=== PATIENT | female | born 1940 | race Asian ===

== ENCOUNTER 2017-03-05 19:59 | Inpatient (IN) | payer MEDICARE, MEDICAID ==
[~2017-03-05] VITALS: Ht 154.9 cm; Wt 72.6 kg
[2017-03-05 20:12] VITALS: BP 146/73
[2017-03-05] MEDS ORDERED: Sodium Chloride 500ML 500 ML IV ONE (20:25)
[2017-03-05 21:01] LABS: HEMATOCRIT 31.7 % (37.0-47.0); HEMOGLOBIN 9.5 G/DL (12.0-16.0); MEAN CORPUSCULAR VOLUME 114 FL (80-99); PLATELET COUNT 92 K/UL (150-450); RED BLOOD COUNT 2.78 M/UL (4.20-5.40); RED CELL DISTRIBUTION WIDTH 19.4 % (11.6-14.8); WHITE BLOOD COUNT 4.9 K/UL (4.8-10.8)
[2017-03-05 21:02] LABS: BASOPHILS % (AUTO) 0.7 % (0.0-2.0); LYMPHOCYTES % (AUTO) 8.4 % (20.0-45.0); MONOCYTES % (AUTO) 5.4 % (1.0-10.0); NEUTROPHILS % (AUTO) 84.5 % (45.0-75.0)
[2017-03-05 21:26] LABS: ALANINE AMINOTRANSFERASE 27 U/L (12-78); ALBUMIN 4.1 G/DL (3.4-5.0); ALBUMIN/GLOBULIN RATIO 0.9 (1.0-2.7); ALKALINE PHOSPHATASE 209 U/L (46-116); ANION GAP 9 mmol/L (5-15); ASPARTATE AMINO TRANSFERASE 37 U/L (15-37); BILIRUBIN,TOTAL 0.3 MG/DL (0.2-1.0); BLOOD UREA NITROGEN 61 mg/dL (7-18); CALCIUM 8.8 MG/DL (8.5-10.1); CARBON DIOXIDE 21 MMOL/L (21-32); CHLORIDE 102 MMOL/L (98-107); CKMB 4.8 NG/ML (0.0-3.6); CREATINE KINASE 176 U/L (26-308); CREATININE 2.6 MG/DL (0.55-1.30); SODIUM 131 MMOL/L (136-145)
[2017-03-05 21:29] LABS: POTASSIUM 7.4 MMOL/L (3.5-5.1)
[2017-03-05] MEDS ORDERED: Calcium Gluconate 1gm/10ml vial IVP ONE (22:00)
[2017-03-05 22:30] VITALS: BP 145/66
[2017-03-05] MEDS ORDERED: Zolpidem 5mg tab ORAL PRN (22:30)
[2017-03-05] MEDS ORDERED: Albuterol/Ipratropium 3ml neb HHN PRN (22:30)
[2017-03-05] MEDS ORDERED: Miralax 17gm pkt ORAL PRN (22:30)
[2017-03-05] MEDS ORDERED: Mylanta II UD 30ml ORAL PRN (22:30)
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
[2017-03-05 23:15] VITALS: BP 158/78
[2017-03-06] VITALS: BP 114/68
[2017-03-06 04:00] VITALS: BP 144/68
[2017-03-06] MEDS: NovoLOG Insulin Flexpen SUBQ SCH ×4 (06:30→21:00)
[2017-03-06 08:00] VITALS: BP 150/68
[2017-03-06 08:04] LABS: HEMATOCRIT 24.2 % (37.0-47.0); HEMOGLOBIN 7.4 G/DL (12.0-16.0); MEAN CORPUSCULAR VOLUME 115 FL (80-99); PLATELET COUNT 78 K/UL (150-450); RED CELL DISTRIBUTION WIDTH 18.8 % (11.6-14.8); WHITE BLOOD COUNT 4.6 K/UL (4.8-10.8)
[2017-03-06 08:05] LABS: INR 0.9 (0.9-1.1)
[2017-03-06 08:58] LABS: LACTATE DEHYDROGENASE 250 U/L (81-234)
[2017-03-06] MEDS ORDERED: Heparin 5000 units/ml inj SUBQ SCH (09:00)
[2017-03-06] MEDS ORDERED: Sodium Polystyrene Sulfonate 15gm Powder ORAL SCH (09:00)
--- NOTE | 2017-03-06 10:00 | Diagnostic Imaging Report ---
Indication: Pain Technique: XRAY Chest 1v Comparison: None Findings: Heart is enlarged. There is no focal airspace consolidation. No pleural effusion or pneumothorax. There is no acute osseous abnormality. Impression: Cardiomegaly. No focal consolidation. This corresponds the preliminary interpretation of the treating ER physician.
[2017-03-06 10:32] LABS: ALANINE AMINOTRANSFERASE 19 U/L (12-78); ALBUMIN 2.9 G/DL (3.4-5.0); ALBUMIN/GLOBULIN RATIO 0.9 (1.0-2.7); ALKALINE PHOSPHATASE 135 U/L (46-116); ANION GAP 13 mmol/L (5-15); ASPARTATE AMINO TRANSFERASE 26 U/L (15-37); BILIRUBIN,TOTAL 0.2 MG/DL (0.2-1.0); BLOOD UREA NITROGEN 57 mg/dL (7-18); CALCIUM 8.3 MG/DL (8.5-10.1); CARBON DIOXIDE 17 MMOL/L (21-32); CHLORIDE 111 MMOL/L (98-107); CHOLESTEROL 108 MG/DL (< 200); CREATININE 2.4 MG/DL (0.55-1.30); HDL CHOLESTEROL 58 MG/DL (40-60); SODIUM 140 MMOL/L (136-145); TRIGLYCERIDES 53 MG/DL (30-150)
[2017-03-06 10:35] LABS: POTASSIUM 6.1 MMOL/L (3.5-5.1)
[2017-03-06 10:41] LABS: % IRON SATURATION 94 % (15-50); IRON 136 ug/dL (50-175); TOTAL IRON BINDING CAPACITY 145 ug/dL (250-450)
[2017-03-06 12:00] VITALS: BP 161/76
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
--- NOTE | 2017-03-06 14:46 | Cardiology Report ---
APPROVED REPORT EKG Measurement Heart [id number] [place] [id number] [id number] Normal sinus rhythm Prolonged QT Abnormal ECG
--- NOTE | 2017-03-06 15:32 | History & Physical ---
History and Physical History & Physicial Syed Lala MD Mar 06, 2017 15:31
--- NOTE | 2017-03-06 15:47 | Cardiology Progress Note ---
Assessment/Plan Assessment/Plan The patient is seen and examined, full consult note is dictated. Objective Last 24 Hour Vital Signs Date Time Temp Pulse Resp B/P (MAP) Pulse Ox O2 Delivery O2 Flow Rate FiO2 03/06/17 12:00 97.2 76 18 161/76 100 Room Air 03/06/17 08:00 71 03/06/17 08:00 97.0 71 18 150/68 100 Room Air 03/06/17 04:00 98.6 73 16 144/68 98 Room Air 03/06/17 04:00 71 03/06/17 00:00 98.2 103 19 114/68 98 03/06/17 00:00 70 03/05/17 23:15 98.6 68 16 158/78 100 Room Air 03/05/17 23:00 63 16 145/66 100 Room Air 03/05/17 22:30 63 16 145/66 100 Room Air 03/05/17 20:12 16 146/73 98 Room Air 03/05/17 19:52 64 16 146/73 98 Room Air Intake and Output 03/05/17 03/06/17 19:00 07:00 Intake Total 240 ml Balance 240 ml Intake Oral 240 ml # Voids 2 Laboratory Tests Test 03/05/17 20:45 03/06/17 06:45 03/06/17 14:55 White Blood Count 4.9 K/UL (4.8-10.8) 4.6 K/UL (4.8-10.8) L Red Blood Count 2.78 M/UL (4.20-5.40) L 2.10 M/UL (4.20-5.40) L Hemoglobin 9.5 G/DL (12.0-16.0) L 7.4 G/DL (12.0-16.0) L Hematocrit 31.7 % (37.0-47.0) L 24.2 % (37.0-47.0) L Mean Corpuscular Volume 114 FL (80-99) H 115 FL (80-99) H Mean Corpuscular Hemoglobin 34.2 PG (27.0-31.0) H 35.0 PG (27.0-31.0) H Mean Corpuscular Hemoglobin Concent 30.0 G/DL (32.0-36.0) L 30.4 G/DL (32.0-36.0) L Red Cell Distribution Width 19.4 % (11.6-14.8) H 18.8 % (11.6-14.8) H Platelet Count 92 K/UL (150-450) L 78 K/UL (150-450) L Mean Platelet Volume 6.1 FL (6.5-10.1) L 7.5 FL (6.5-10.1) Neutrophils (%) (Auto) 84.5 % (45.0-75.0) H % (45.0-75.0) Lymphocytes (%) (Auto) 8.4 % (20.0-45.0) L % (20.0-45.0) Monocytes (%) (Auto) 5.4 % (1.0-10.0) % (1.0-10.0) Eosinophils (%) (Auto) 1.0 % (0.0-3.0) % (0.0-3.0) Basophils (%) (Auto) 0.7 % (0.0-2.0) % (0.0-2.0) Sodium Level 131 MMOL/L (136-145) L 140 MMOL/L (136-145) Potassium Level 7.4 MMOL/L (3.5-5.1) *H 6.1 MMOL/L (3.5-5.1) *H Chloride Level 102 MMOL/L (98-107) 111 MMOL/L (98-107) H Carbon Dioxide Level 21 MMOL/L (21-32) 17 MMOL/L (21-32) L Anion Gap 9 mmol/L (5-15) 13 mmol/L (5-15) Blood Urea Nitrogen 61 mg/dL (7-18) H 57 mg/dL (7-18) H Creatinine 2.6 MG/DL (0.55-1.30) H 2.4 MG/DL (0.55-1.30) H Estimat Glomerular Filtration Rate mL/min (>60) mL/min (>60) Glucose Level 94 MG/DL (74-106) 87 MG/DL (74-106) Calcium Level 8.8 MG/DL (8.5-10.1) 8.3 MG/DL (8.5-10.1) L Total Bilirubin 0.3 MG/DL (0.2-1.0) 0.2 MG/DL (0.2-1.0) Aspartate Amino Transf (AST/SGOT) 37 U/L (15-37) 26 U/L (15-37) Alanine Aminotransferase (ALT/SGPT) 27 U/L (12-78) 19 U/L (12-78) Alkaline Phosphatase 209 U/L (46-116) H 135 U/L (46-116) H Total Creatine Kinase 176 U/L (26-308) Creatine Kinase MB 4.8 NG/ML (0.0-3.6) H Creatine Kinase MB Relative Index 2.7 Troponin I 0.009 ng/mL (0.000-0.056) Pro-B-Type Natriuretic Peptide 4792 pg/mL (0-125) H Total Protein 8.8 G/DL (6.4-8.2) H 6.1 G/DL (6.4-8.2) #L Albumin 4.1 G/DL (3.4-5.0) 2.9 G/DL (3.4-5.0) L Globulin 4.7 g/dL 3.2 g/dL Albumin/Globulin Ratio 0.9 (1.0-2.7) L 0.9 (1.0-2.7) L Differential Total Cells Counted 100 Neutrophils % (Manual) 81 % (45-75) H Lymphocytes % (Manual) 17 % (20-45) L Monocytes % (Manual) 2 % (1-10) Eosinophils % (Manual) 0 % (0-3) Basophils % (Manual) 0 % (0-2) Band Neutrophils 0 % (0-8) Platelet Estimate Decreased L Platelet Morphology Normal Hypochromasia 1+ Anisocytosis 1+ Macrocytosis 1+ Erythrocyte Sedimentation Rate 56 MM/HR (0-30) H Reticulocyte Count 1.3 % (0.0-2.0) Prothrombin Time 9.7 SEC (9.30-11.50) Prothromb Time International Ratio 0.9 (0.9-1.1) Activated Partial Thromboplast Time 27 SEC (23-33) Hemoglobin A1c 6.0 % (4.3-6.0) Iron Level 136 ug/dL (50-175) Total Iron Binding Capacity 145 ug/dL (250-450) L Percent Iron Saturation 94 % (15-50) H Unsaturated Iron Binding 9 ug/dL (112-346) L Lactate Dehydrogenase 250 U/L (81-234) H Triglycerides Level 53 MG/DL (30-150) Cholesterol Level 108 MG/DL (< 200) LDL Cholesterol 49 mg/dL (<100) HDL Cholesterol 58 MG/DL (40-60) Cholesterol/HDL Ratio 1.9 (3.3-4.4) L Vitamin B12 Level 326 PG/ML (193-986) Folate 4.5 NG/ML (8.6-58.9) L Thyroid Stimulating Hormone (TSH) 1.987 uiU/mL (0.358-3.740) Uric Acid 4.4 MG/DL (2.6-7.2) Ferritin Pending C-Reactive Protein, Quantitative Pending YOMAIRA TRAYLOR Mar 06, 2017 15:47
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
[2017-03-06 16:00] VITALS: BP 171/73
[2017-03-06 16:06] LABS: FERRITIN > 2000 NG/ML (8-388)
[2017-03-06] MEDS ORDERED: Acetaminophen 500mg (ES) tab ORAL PRN (16:30)
[2017-03-06 16:32] LABS: MEAN CORPUSCULAR VOLUME 115 FL (80-99); PLATELET COUNT 81 K/UL (150-450); RED BLOOD COUNT 2.35 M/UL (4.20-5.40); RED CELL DISTRIBUTION WIDTH 19.2 % (11.6-14.8); WHITE BLOOD COUNT 4.7 K/UL (4.8-10.8)
[2017-03-06 16:33] LABS: BASOPHILS % (AUTO) 0.7 % (0.0-2.0); EOSINOPHILS % (AUTO) 2.5 % (0.0-3.0); LYMPHOCYTES % (AUTO) 18.6 % (20.0-45.0); MONOCYTES % (AUTO) 11.2 % (1.0-10.0)
[2017-03-06] MEDS: Vitamin B12 1000mcg/ml Inj SUBQ SCH (16:55)
[2017-03-06] MEDS ORDERED: Vitamin D 50,000 units cap ORAL SCH (17:00)
[2017-03-06 17:11] LABS: ALANINE AMINOTRANSFERASE 19 U/L (12-78); ALBUMIN 3.1 G/DL (3.4-5.0); ALBUMIN/GLOBULIN RATIO 0.9 (1.0-2.7); ALKALINE PHOSPHATASE 149 U/L (46-116); ANION GAP 11 mmol/L (5-15); ASPARTATE AMINO TRANSFERASE 25 U/L (15-37); BILIRUBIN,TOTAL 0.2 MG/DL (0.2-1.0); BLOOD UREA NITROGEN 54 mg/dL (7-18); CALCIUM 8.6 MG/DL (8.5-10.1); CARBON DIOXIDE 19 MMOL/L (21-32); CHLORIDE 112 MMOL/L (98-107); CREATININE 2.3 MG/DL (0.55-1.30); POTASSIUM 5.8 MMOL/L (3.5-5.1); SODIUM 142 MMOL/L (136-145)
[2017-03-06] MEDS: Docusate 100mg cap ORAL SCH ×2 (18:00→18:29)
[2017-03-06] MEDS ORDERED: RENVELA0.8 GM ORAL (18:43)
[2017-03-06] MEDS ORDERED: NOVOLOG100 UNIT/4 SQ (18:56)
[2017-03-06] MEDS ORDERED: VASCEPA1 GM PO (18:56)
[2017-03-06] MEDS ORDERED: ATORVASTATIN CA10 MG ORAL (18:56)
[2017-03-06] MEDS ORDERED: ALLOPURINOL100 M1 ORAL (18:56)
[2017-03-06] MEDS ORDERED: DIOVAN160 MG ORAL (18:56)
[2017-03-06] MEDS ORDERED: CELEBREX200 MG ORAL (18:56)
[2017-03-06] MEDS ORDERED: NATEGLINIDE120 MG PO (18:56)
[2017-03-06] MEDS ORDERED: FERROUS SULFAT325 M2 ORAL (18:56)
[2017-03-06] MEDS ORDERED: CILOSTAZOL100 MG PO (18:56)
[2017-03-06] MEDS ORDERED: ALENDRONAT70 MG/75 M PO (18:56)
[2017-03-06] MEDS ORDERED: AMLODIPINE BESYL5 MG ORAL (18:56)
[2017-03-06] MEDS ORDERED: CALTRATE 600 +1 EAC3 PO (18:56)
[2017-03-06] MEDS ORDERED: GABAPENTIN300 MG ORAL (18:56)
[2017-03-06] MEDS ORDERED: LANTUS SOL100 UNIT/1 SUBQ (18:56)
[2017-03-06] MEDS ORDERED: PROCRIT10000 UNIT SUBQ ×2 (18:56)
[2017-03-06] MEDS ORDERED: ISOSORBIDE MONO30 M1 PO (18:56)
[2017-03-06] MEDS ORDERED: ZENPEP DR 25,01 EACH PO (18:56)
[2017-03-06] MEDS ORDERED: ASPIR 8181 MG ORAL (18:56)
[2017-03-06] MEDS ORDERED: COLCRYS0.6 M1 PO (18:56)
[2017-03-06] MEDS ORDERED: BYSTOLIC10 MG ORAL (18:56)
[2017-03-06] MEDS ORDERED: TRADJENTA5 MG PO (18:56)
[2017-03-06] MEDS ORDERED: RESTASIS1 EACH BOTH EYES (18:58)
[2017-03-06 20:00] VITALS: BP 159/93
[2017-03-06] MEDS ORDERED: Nitroglycerin Subl 0.4mg tab SL PRN (20:30)
[2017-03-06] MEDS: Morphine Sulfate 2mg/ml Inj IVP PRN (21:27)
--- NOTE | 2017-03-06 22:00 | Consultation ---
DATE OF CONSULTATION: 03/06/2017 CARDIOLOGY CONSULTATION CONSULTING PHYSICIAN: Yoni Yost M.D. REFERRING PHYSICIAN: Syed Lala M.D. REASON FOR CONSULTATION: Management of chest pain. HISTORY OF PRESENT ILLNESS: The patient is a very unfortunate 76-year-old Ma[place] female, who presents to emergency department for evaluation of chest pain. She had associated dizziness and blurred vision while she was driving on the highway and she pulled over and reported that to her family members. A 911 was called and the patient was brought to [facility] Emergency Department. At the time of arrival, her Accu-Chek was 30. She was given glucose and her symptoms resolved. She had a blood pressure of 146/72 mmHg at the time of arrival to the hospital and heart rate was 64. A 12-lead electrocardiogram did not show any ST and T-wave abnormality although it was significant for QT prolongation. She was admitted to telemetry for further evaluation and management of chest pain. Cardiology consultation was made at the request of Dr. Lala to address the above. PAST MEDICAL HISTORY: History of diabetes mellitus and hypertension. PAST SURGICAL HISTORY: None. MEDICATIONS: Currently, the medication list is not available. However, she is taking lansoprazole 20 mg p.o. daily, folic acid 5 mg p.o. daily, ergocalciferol 50,000 units weekly, insulin aspart per protocol, acetaminophen 650 mg q.4 h. p.r.n. fever and temperature, morphine sulfate 1 mg q.4 h. p.r.n. pain, MiraLAX 17 g p.r.n. constipation daily, Zofran 6 mg IV push p.r.n. nausea and vomiting, zolpidem 5 mg nightly p.r.n. insomnia, inhaler of albuterol and Atrovent 3 mL q.6 hours p.r.n. dyspnea, and clonidine 0.1 mg q.4 h. p.r.n. for high blood pressure in this hospitalization. ALLERGIES: No known drug allergies. FAMILY HISTORY: No premature coronary artery disease in the first-degree relatives. SOCIAL HISTORY: Denies any tobacco, alcohol, or illicit drug use. REVIEW OF SYSTEMS: HEENT: At the time of this event, she had headache, blurred vision, and dizziness. CONSTITUTIONAL: Denies any fever, chills, night sweats, or generalized weakness at the time of this event. CARDIOVASCULAR: Some chest pain and pressure, but no shortness of breath. Denies any PND, orthopnea, or leg swelling. PULMONARY: Denies any cough, hemoptysis, or wheezing. GASTROINTESTINAL: Denies any nausea, vomiting, diarrhea, constipation, abdominal pain, or GI bleed. GENITOURINARY: Denies any hematuria, dysuria, or incontinence. NEUROLOGY: Denies any motor dysfunction, sensory deficit, or altered speech. PHYSICAL EXAMINATION: VITAL SIGNS: Blood pressure at the time of arrival to the hospital was 146/72, respirations 16, pulse of 64, and O2 saturation 98% on room air. GENERAL: The patient is a very unfortunate 76-year-old female, in no apparent respiratory distress. Alert and oriented x4. HEENT: Atraumatic and normocephalic. Anicteric. Pupils are equal, round, and reactive to light and accommodation. Extraocular muscles intact. NECK: JVP less than 5 cm. No carotid bruit. Carotid upstrokes 2+ bilaterally. CARDIOVASCULAR: Normal S1 and S2. Regular rate and rhythm. No murmurs, gallops, or rubs. PMI is at fourth intercostal space at the midclavicular line. LUNGS: Clear to auscultation bilaterally. ABDOMEN: Soft, nontender, and nondistended. No hepatosplenomegaly. Positive bowel sounds. EXTREMITIES: No evidence of edema, clubbing, or cyanosis. LABORATORY FINDINGS: Chemistry, sodium is 131, potassium is 7.4, chloride 102, bicarbonate 21, BUN of 61, creatinine 2.6, glucose is 94, and calcium is 8.8. Troponin I x1 negative. ProBNP was 4792. INR was 0.9. WBC was 4.9, hemoglobin 9.5, hematocrit 31.7, and platelet count is 92,000. A 12-lead electrocardiogram, sinus rhythm at the rate of 63 with normal axis, QT prolongation. No ST and T-wave abnormalities. Chest x-ray showed cardiomegaly with no focal consolidation. ASSESSMENT AND PLAN: The patient is a very unfortunate 76-year-old lady seen in Cardiology consultation at the request of Dr. Lala. 1. Chest discomfort most likely secondary to hypoglycemic event. She had typical symptoms of dizziness, lightheadedness, and blurred vision due to hypoglycemia. On arrival to the emergency department, a 12-lead electrocardiogram did not show any acute ischemic changes. We would like to obtain 2D echocardiography for assessment of wall motion. At this point, I would wait for the result of 2D echocardiography. No other Cardiology cardiac intervention is necessary. We will await this result of the second troponin I level to ultimately rule out acute myocardial infarction. In the meantime, the patient will be continued on aspirin and statin as she is diabetic. 2. Diabetes mellitus with hypoglycemic event. 3. Hypertension. The patient will benefit from ARMANI inhibitors, which will be started and calcium channel adi until the acute renal failure is resolved. I would like to thank, Dr. Lala, for allowing me to participate in the care of this patient. Yoni Yost M.D. DR: GABRIEL JOB#: [id number] CC:
[2017-03-06] MEDS ORDERED: Sodium Polystyrene Sulfonate 15gm Powder ORAL ONE (23:00)
[2017-03-07] VITALS (9 sets, daily range): BP systolic 150–165; BP diastolic 69–80
--- NOTE | 2017-03-07 00:45 | History and Physical Report ---
DATE OF ADMISSION: 03/05/2017 CHIEF COMPLAINT: Chest pain. HISTORY OF PRESENT ILLNESS: This is a 76-year-old Amharic female with past medical history significant for diabetes type 2, hypertension, and chronic kidney disease, who presented to the emergency room complained about chest pain while she was driving at highway. Family member called 911 and upon arrival to the emergency, the patient was asymptomatic however was noted to have elevated potassium as well as worsening renal function and subsequently the patient was admitted to the hospital for acute chest pain possible acute coronary syndrome as well as hyperkalemia and acute kidney injury on chronic renal insufficiency. The patient was noted to have blood glucose of 30 by EMS and received some glucose on the way. She denies any fever or chills. Denies any shortness of breath. Denies any aggravating factors. She denies any loss of consciousness. Denies any double vision. PAST MEDICAL HISTORY AND PAST SURGICAL HISTORY: As above. History of diabetes type 2, hypertension, and chronic kidney disease. History is very limited secondary to patient's status. History is mostly taken from the ER chart, as she is a poor historian. MEDICATIONS AT HOME: Unknown at this time. ALLERGIES: No known drug allergies. SOCIAL HISTORY: Denies any smoking, alcohol, or drugs. FAMILY HISTORY: Noncontributory. REVIEW OF SYSTEMS: Mostly as above. Denies any dysuria, frequency, or hematuria. Denies any hemoptysis or hematochezia. Complained about lower extremity edema. Denies any loss of consciousness. PHYSICAL EXAMINATION: VITAL SIGNS: Today, temperature 98.6, pulse of 103, respirations 16, and blood pressure 158/78, repeat one was 114/68. GENERAL: The patient is awake and responsive, in no acute distress. HEAD AND NECK: Pupils reactive to light. Extraocular movements intact. NECK: Supple. No JVD. LUNGS: Clear. No wheezing or rales. HEART: S1 and S2. Distant heart sounds. Normal gallops. ABDOMEN: Soft, nondistended, and nontender. Positive bowel sounds. EXTREMITIES: No cyanosis or clubbing. A +1 edema on the left lower extremity and ecchymosis was noted in the left lower extremity. NEUROLOGIC: Cranial nerves II through XII are grossly intact. Motor is 5/5 in all extremities. Gait is intact. PSYCHIATRIC: Mood and affect is unable to obtain secondary to patient's lack of language barrier as well as poor historian. LABORATORY AND DIAGNOSTIC DATA: On admission, WBC of 4.9, hemoglobin 9.5, hematocrit 31, and platelet is 92. The patient's sodium 131, potassium 7.4, chloride 102, bicarbonate 21, BUN 51, and creatinine 2.6. Alkaline phosphatase 209, AST of 37, and ALT of 27. First troponin 0.09. ProBNP of 4792. PT of 9.7, INR 0.9, and PTT of 27. The patient's chest x-ray was noted to be cardiomegaly with no focal consolidation. EKG showed normal sinus rhythm, ventricular rate of 63. No tall T-wave was identified. However, the patient has mild prolonged QT. No ST elevation was identified. ASSESSMENT: 1. Chest pain possible acute coronary syndrome. 2. Diabetes type 2, poorly controlled with episode of hypoglycemia. 3. Severe hyperkalemia. 4. Hypertension. 5. Acute kidney injury on chronic kidney disease. 6. Pancytopenia. PLAN: Admit the patient to telemetry. We will follow up with Dr. Brewer, Pulmonary Critical Care, Dr. Yost from Cardiology as well as Dr. Rodrigez from Nephrology. We will monitor laboratory including potassium closely and follow up with history of cardiac enzymes. We will consider transfusion if need to and echocardiogram. Avoid medications if increase worsening of renal function. Code status is Full Code. DVT prophylaxis. Heparin subcutaneous. We will follow up with Accu-Chek with sliding scale. Syed Lala M.D. DR: DAVE JOB#: [id number] CC:
[2017-03-07] MEDS: Morphine Sulfate 2mg/ml Inj IVP PRN ×2 (01:33→10:17)
[2017-03-07] MEDS: NovoLOG Insulin Flexpen SUBQ SCH ×4 (06:30→21:00)
--- NOTE | 2017-03-07 07:20 | Pulmonology Progress Note ---
Assessment/Plan Assessment/Plan ASSESSMENT Chest pain,liekly atypical ( due to fall) Acute renal failure , poss on underlying CRI ( due to DM and HTN) acute hyperkalemia hypoglycemia associated with DM HTN anemia PLAN OF CARE Tele troponin x 2 negative ECG no acute ischemic changes CP likely atypical occurred after fall, no further episodes ECHO cardio eval-per PMD discretion transfuse 1 u RBC today hold ASA and Heparin due to anemia check stool OB anemia w/up with sufficient iron Nitro prn lipid panel stable pro BNP 479 O2 titrate prn, HHN prn Nephro follows s/p Kayexalate, K down to normal creat down to 2.0 renal US renal studies Venous Duplex BLE DVT GI prophylaxis BS management with SS of insulin prn BP management with CCB and Clonidine prn R shoulder X ray case discussed and evaluated by supervising physician Subjective Allergies: Coded Allergies: No Known Allergies (Unverified , 03/05/17) Subjective HH down to 7,6/25.6 SR on tele c/o R shoulder pain after faill at home chest pain occurred after fall as well , currntly denies chest pain or SOB Objective Last 24 Hour Vital Signs Date Time Temp Pulse Resp B/P (MAP) Pulse Ox O2 Delivery O2 Flow Rate FiO2 03/07/17 04:20 98.5 75 20 151/71 94 Room Air 03/07/17 04:00 77 03/07/17 00:24 98.1 78 20 164/80 95 03/07/17 00:00 77 03/06/17 20:00 98.3 75 24 159/93 93 Room Air 03/06/17 20:00 76 03/06/17 16:53 76 161/76 03/06/17 16:00 97.9 71 18 171/73 99 Room Air 03/06/17 16:00 77 03/06/17 12:00 97.2 76 18 161/76 100 Room Air 03/06/17 12:00 78 03/06/17 08:00 71 03/06/17 08:00 97.0 71 18 150/68 100 Room Air Intake and Output 03/06/17 03/07/17 19:00 07:00 Intake Total 236 ml Output Total 91 ml Balance 145 ml Intake Oral 236 ml Output Post Void Residual 91 ml Bladder Scan Volume Amount 76-100 ml # Voids 1 2 General Appearance: no acute distress HEENT: normocephalic, atraumatic, anicteric, mucous membranes moist Respiratory/Chest: lungs clear, no respiratory distress, no accessory muscle use Cardiovascular: normal peripheral pulses, normal rate, regular rhythm - SR on tele Abdomen: soft, non tender, non distended Extremities: no edema, pedal pulses normal Neurologic/Psychiatric: abnormal gait, oriented x 3, responsive Musculoskeletal: atrophy - BLE Laboratory Tests 03/06/17 14:55: White Blood Count 4.7L, Red Blood Count 2.35L, Hemoglobin 8.0L, Hematocrit 27.0L , Mean Corpuscular Volume 115H, Mean Corpuscular Hemoglobin 33.9H, Mean Corpuscular Hemoglobin Concent 29.6L, Red Cell Distribution Width 19.2H, Platelet Count 81L, Mean Platelet Volume 7.3, Neutrophils (%) (Auto) 67.0, Lymphocytes (%) (Auto) 18.6L, Monocytes (%) (Auto) 11.2H, Eosinophils (%) (Auto ) 2.5, Basophils (%) (Auto) 0.7, Sodium Level 142, Potassium Level 5.8H, Chloride Level 112H, Carbon Dioxide Level 19L, Anion Gap 11, Blood Urea Nitrogen 54H, Creatinine 2.3H, Estimat Glomerular Filtration Rate , Glucose Level 77, Uric Acid 4.4, Calcium Level 8.6, Magnesium Level 2.4, Ferritin > 2000H, Total Bilirubin 0.2, Aspartate Amino Transf (AST/SGOT) 25, Alanine Aminotransferase (ALT/SGPT) 19, Alkaline Phosphatase 149H, C-Reactive Protein, Quantitative 0.6, Pro-B-Type Natriuretic Peptide 5573H, Total Protein 6.5, Albumin 3.1L, Globulin 3.4, Albumin/Globulin Ratio 0.9L Current Medications Medications (Trade) Dose Ordered Sig/Hellen Route PRN Reason Start Time Stop Time Status Last Admin Dose Admin Acetaminophen (Tylenol) 650 mg Q4H PRN ORAL fever 03/05/17 22:30 04/04/17 22:29 Albuterol/ Ipratropium (Albuterol/ Ipratropium) 3 ml Q6HRT PRN HHN dyspnea 03/05/17 22:30 03/10/17 22:29 Amlodipine Besylate (Norvasc) 2.5 mg DAILY ORAL 03/06/17 16:00 04/05/17 15:59 03/06/17 16:53 Clonidine HCl (Catapres Tab) 0.1 mg Q4H PRN ORAL For High Blood Pressure 03/05/17 22:30 04/04/17 22:29 Cyanocobalamin (Vitamin B12) 1,000 mcg DAILY@1700 SUBQ 03/06/17 17:00 03/08/17 17:01 03/06/17 16:55 Dextrose (Dextrose 50%) STAT PRN IV Hypoglycemia 03/05/17 22:30 04/04/17 22:29 03/06/17 05:52 Docusate Sodium (Colace) 100 mg THREE TIMES A DAY ORAL 03/06/17 18:00 04/05/17 17:59 Ergocalciferol (Drisdol) 50,000 intlu QWEEK@1700 ORAL 03/06/17 17:00 04/05/17 16:59 03/06/17 16:54 Folic Acid (Folate) 5 mg DAILY ORAL 03/06/17 15:45 04/05/17 15:44 03/06/17 16:54 Insulin Aspart (NovoLOG) BEFORE MEALS AND HS SUBQ 03/06/17 06:30 04/05/17 06:29 03/06/17 12:11 Morphine Sulfate (Morphine Sulfate) 1 mg EVERY 4 HOURS PRN IVP For Pain 03/05/17 22:30 03/12/17 22:29 03/07/17 01:33 Nitroglycerin (Ntg) 0.4 mg Q5M PRN SL Prn Chest Pain 03/06/17 20:30 04/05/17 20:29 Ondansetron HCl (Zofran) 4 mg Q6H PRN IVP Nausea & Vomiting 03/05/17 22:30 04/04/17 22:29 Pantoprazole (Protonix) 40 mg DAILY ORAL 03/06/17 16:00 04/05/17 15:59 03/06/17 16:54 Polyethylene Glycol (Miralax) 17 gm HSPRN PRN ORAL Constipation 03/05/17 22:30 04/04/17 22:29 Zolpidem Tartrate (Ambien) 5 mg HSPRN PRN ORAL Insomnia 03/05/17 22:30 03/12/17 22:29 03/06/17 23:11 Subhash ([facility]),Dee Dee MADERA Mar 07, 2017 07:20
[2017-03-07 08:04] LABS: HEMATOCRIT 25.6 % (37.0-47.0); HEMOGLOBIN 7.6 G/DL (12.0-16.0); MEAN CORPUSCULAR VOLUME 116 FL (80-99); PLATELET COUNT 73 K/UL (150-450); WHITE BLOOD COUNT 4.1 K/UL (4.8-10.8)
[2017-03-07 08:39] LABS: ALANINE AMINOTRANSFERASE 18 U/L (12-78); ALBUMIN/GLOBULIN RATIO 1.1 (1.0-2.7); ALKALINE PHOSPHATASE 138 U/L (46-116); ANION GAP 11 mmol/L (5-15); ASPARTATE AMINO TRANSFERASE 24 U/L (15-37); BILIRUBIN,TOTAL 0.4 MG/DL (0.2-1.0); BLOOD UREA NITROGEN 47 mg/dL (7-18); CALCIUM 8.2 MG/DL (8.5-10.1); CARBON DIOXIDE 21 MMOL/L (21-32); CHLORIDE 112 MMOL/L (98-107); PHOSPHORUS 4.7 MG/DL (2.5-4.9); POTASSIUM 4.5 MMOL/L (3.5-5.1); SODIUM 144 MMOL/L (136-145)
[2017-03-07] MEDS ORDERED: Enoxaparin 40mg Inj SUBQ SCH (09:00)
[2017-03-07] MEDS: Docusate 100mg cap ORAL SCH ×3 (10:16→16:55)
[2017-03-07 10:21] LABS: % IRON SATURATION 98 % (15-50); IRON 127 ug/dL (50-175); TOTAL IRON BINDING CAPACITY 130 ug/dL (250-450)
--- NOTE | 2017-03-07 10:25 | Nephrology Progress Note ---
Assessment/Plan Problem List: (1) Hyperkalemia, diminished renal excretion (2) Renal insufficiency (3) ATN (acute tubular necrosis) Assessment Acute renal failure- Cr lowering ? Underlying CKD DM ? Nephropathy HTN , ? Hypertensive kidney disease Anemia Plan Adjust BP meds Avoid Nephrotoxics Kayexelate given and stoped Norvasc Urine analysis and studies P Folate Vit D B12 Monitor renal parameters Per orders Subjective ROS Limited/Unobtainable: No Constitutional: Reports: malaise Objective Objective Last 24 Hour Vital Signs Date Time Temp Pulse Resp B/P (MAP) Pulse Ox O2 Delivery O2 Flow Rate FiO2 03/07/17 10:16 77 150/76 03/07/17 08:05 71 18 Room Air 21 03/07/17 04:20 98.5 75 20 151/71 94 Room Air 03/07/17 04:00 77 03/07/17 00:24 98.1 78 20 164/80 95 03/07/17 00:00 77 03/06/17 20:00 98.3 75 24 159/93 93 Room Air 03/06/17 20:00 76 03/06/17 16:53 76 161/76 03/06/17 16:00 97.9 71 18 171/73 99 Room Air 03/06/17 16:00 77 03/06/17 12:00 97.2 76 18 161/76 100 Room Air 03/06/17 12:00 78 Intake and Output 03/06/17 03/07/17 19:00 07:00 Intake Total 236 ml Output Total 91 ml Balance 145 ml Intake Oral 236 ml Output Post Void Residual 91 ml Bladder Scan Volume Amount 76-100 ml # Voids 1 2 Laboratory Tests 03/06/17 14:55: White Blood Count 4.7L, Red Blood Count 2.35L, Hemoglobin 8.0L, Hematocrit 27.0L , Mean Corpuscular Volume 115H, Mean Corpuscular Hemoglobin 33.9H, Mean Corpuscular Hemoglobin Concent 29.6L, Red Cell Distribution Width 19.2H, Platelet Count 81L, Mean Platelet Volume 7.3, Neutrophils (%) (Auto) 67.0, Lymphocytes (%) (Auto) 18.6L, Monocytes (%) (Auto) 11.2H, Eosinophils (%) (Auto ) 2.5, Basophils (%) (Auto) 0.7, Sodium Level 142, Potassium Level 5.8H, Chloride Level 112H, Carbon Dioxide Level 19L, Anion Gap 11, Blood Urea Nitrogen 54H, Creatinine 2.3H, Estimat Glomerular Filtration Rate , Glucose Level 77, Uric Acid 4.4, Calcium Level 8.6, Magnesium Level 2.4, Ferritin > 2000H, Total Bilirubin 0.2, Aspartate Amino Transf (AST/SGOT) 25, Alanine Aminotransferase (ALT/SGPT) 19, Alkaline Phosphatase 149H, C-Reactive Protein, Quantitative 0.6, Pro-B-Type Natriuretic Peptide 5573H, Total Protein 6.5, Albumin 3.1L, Globulin 3.4, Albumin/Globulin Ratio 0.9L 03/07/17 06:10: White Blood Count 4.1L, Red Blood Count 2.20L, Hemoglobin 7.6L, Hematocrit 25.6L , Mean Corpuscular Volume 116H, Mean Corpuscular Hemoglobin 34.5H, Mean Corpuscular Hemoglobin Concent 29.7L, Red Cell Distribution Width 19.0H, Platelet Count 73L, Mean Platelet Volume 6.7, Neutrophils (%) (Auto) , Lymphocytes (%) (Auto) , Monocytes (%) (Auto) , Eosinophils (%) (Auto) , Basophils (%) (Auto) , Sodium Level 144, Potassium Level 4.5, Chloride Level 112H, Carbon Dioxide Level 21, Anion Gap 11, Blood Urea Nitrogen 47H, Creatinine 2.0H, Estimat Glomerular Filtration Rate , Glucose Level 98, Calcium Level 8.2L, Magnesium Level 2.3, Total Bilirubin 0.4, Aspartate Amino Transf ( AST/SGOT) 24, Alanine Aminotransferase (ALT/SGPT) 18, Alkaline Phosphatase 138H , Total Protein 5.8L, Albumin 3.0L, Globulin 2.8, Albumin/Globulin Ratio 1.1, Prothrombin Time 10.0, Prothromb Time International Ratio 1.0, Activated Partial Thromboplast Time 26, Phosphorus Level 4.7, Troponin I 0.022 03/07/17 09:00: Ferritin [Pending], Iron Level [Pending], Unsaturated Iron Binding [Pending] Height (Feet): 5 Height (Inches): 1.00 Weight (Pounds): 160 General Appearance: no apparent distress Cardiovascular: normal rate Respiratory/Chest: lungs clear Abdomen: soft FOULADIAN,RACHEL Mar 07, 2017 10:25
[2017-03-07 10:56] LABS: APPEARANCE,URINE SLIGHTLY CLOUDY; BILIRUBIN, URINE NEGATIVE (NEGATIVE); COLOR,URINE PALE YELLOW; GLUCOSE, URINE (UA) NEGATIVE (NEGATIVE); KETONES,URINE NEGATIVE (NEGATIVE); LEUKOCYTE ESTERASE ,URINE NEGATIVE (NEGATIVE); NITRITE,URINE NEGATIVE (NEGATIVE); PH,URINE 6 (4.5-8.0); PROTEIN,URINE 3+ (NEGATIVE); UROBILINOGEN,URINE NORMAL MG/DL (0.0-1.0)
[2017-03-07 10:58] LABS: FERRITIN > 2000 NG/ML (8-388)
--- NOTE | 2017-03-07 11:38 | Internal Med Progress Note ---
Subjective Date of Service: Mar 07, 2017 Physician Name Chidi Sapp Attending Physician Syed Lala MD Current Medications Medications (Trade) Dose Ordered Sig/Hellen Route PRN Reason Start Time Stop Time Status Last Admin Dose Admin Acetaminophen (Tylenol) 650 mg Q4H PRN ORAL fever 03/05/17 22:30 04/04/17 22:29 Albuterol/ Ipratropium (Albuterol/ Ipratropium) 3 ml Q6HRT PRN HHN dyspnea 03/05/17 22:30 03/10/17 22:29 Amlodipine Besylate (Norvasc) 5 mg DAILY ORAL 03/08/17 09:00 04/07/17 08:59 Clonidine HCl (Catapres Tab) 0.1 mg Q4H PRN ORAL For High Blood Pressure 03/05/17 22:30 04/04/17 22:29 Cyanocobalamin (Vitamin B12) 1,000 mcg DAILY@1700 SUBQ 03/06/17 17:00 03/08/17 17:01 03/06/17 16:55 Dextrose (Dextrose 50%) STAT PRN IV Hypoglycemia 03/05/17 22:30 04/04/17 22:29 03/06/17 05:52 Docusate Sodium (Colace) 100 mg THREE TIMES A DAY ORAL 03/06/17 18:00 04/05/17 17:59 03/07/17 10:16 Ergocalciferol (Drisdol) 50,000 intlu QWEEK@1700 ORAL 03/06/17 17:00 04/05/17 16:59 03/06/17 16:54 Folic Acid (Folate) 5 mg DAILY ORAL 03/06/17 15:45 04/05/17 15:44 03/07/17 10:15 Insulin Aspart (NovoLOG) BEFORE MEALS AND HS SUBQ 03/06/17 06:30 04/05/17 06:29 03/06/17 12:11 Morphine Sulfate (Morphine Sulfate) 1 mg EVERY 4 HOURS PRN IVP For Pain 03/05/17 22:30 03/12/17 22:29 03/07/17 10:17 Nitroglycerin (Ntg) 0.4 mg Q5M PRN SL Prn Chest Pain 03/06/17 20:30 04/05/17 20:29 Ondansetron HCl (Zofran) 4 mg Q6H PRN IVP Nausea & Vomiting 03/05/17 22:30 04/04/17 22:29 Pantoprazole (Protonix) 40 mg DAILY ORAL 03/06/17 16:00 04/05/17 15:59 03/07/17 10:16 Polyethylene Glycol (Miralax) 17 gm HSPRN PRN ORAL Constipation 03/05/17 22:30 04/04/17 22:29 Zolpidem Tartrate (Ambien) 5 mg HSPRN PRN ORAL Insomnia 03/05/17 22:30 03/12/17 22:29 03/06/17 23:11 Allergies: Coded Allergies: No Known Allergies (Unverified , 03/05/17) ROS Limited/Unobtainable: No Constitutional: Reports: no symptoms HEENT: Reports: no symptoms Cardiovascular: Reports: chest pain Respiratory: Reports: no symptoms Gastrointestinal/Abdominal: Reports: no symptoms Genitourinary: Reports: no symptoms Neurologic/Psychiatric: Reports: no symptoms Subjective 76 YO F admitted with chest pain. Found to have hyperkalemia and worsening renal failure. Objective Last Vital Signs Date Time Temp Pulse Resp B/P (MAP) Pulse Ox O2 Delivery O2 Flow Rate FiO2 03/07/17 10:47 98.5 03/07/17 10:16 77 150/76 03/07/17 08:05 18 Room Air 21 03/07/17 04:20 94 General Appearance: WD/WN, no apparent distress EENT: PERRL/EOMI, normal ENT inspection Neck: non-tender, normal alignment, supple, normal inspection Cardiovascular: normal peripheral pulses, normal rate, regular rhythm, no gallop/murmur, no JVD Respiratory/Chest: chest wall non-tender, lungs clear, normal breath sounds, no respiratory distress, no accessory muscle use Abdomen: normal bowel sounds, non tender, soft, no organomegaly, no mass Extremities: normal range of motion, non-tender 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 normal, no motor/sensory deficits Skin: normal pigmentation, warm/dry Laboratory Tests Test 03/06/17 14:55 03/07/17 06:10 03/07/17 09:00 03/07/17 10:30 White Blood Count 4.7 K/UL (4.8-10.8) L 4.1 K/UL (4.8-10.8) L Red Blood Count 2.35 M/UL (4.20-5.40) L 2.20 M/UL (4.20-5.40) L Hemoglobin 8.0 G/DL (12.0-16.0) L 7.6 G/DL (12.0-16.0) L Hematocrit 27.0 % (37.0-47.0) L 25.6 % (37.0-47.0) L Mean Corpuscular Volume 115 FL (80-99) H 116 FL (80-99) H Mean Corpuscular Hemoglobin 33.9 PG (27.0-31.0) H 34.5 PG (27.0-31.0) H Mean Corpuscular Hemoglobin Concent 29.6 G/DL (32.0-36.0) L 29.7 G/DL (32.0-36.0) L Red Cell Distribution Width 19.2 % (11.6-14.8) H 19.0 % (11.6-14.8) H Platelet Count 81 K/UL (150-450) L 73 K/UL (150-450) L Mean Platelet Volume 7.3 FL (6.5-10.1) 6.7 FL (6.5-10.1) Neutrophils (%) (Auto) 67.0 % (45.0-75.0) % (45.0-75.0) Lymphocytes (%) (Auto) 18.6 % (20.0-45.0) L % (20.0-45.0) Monocytes (%) (Auto) 11.2 % (1.0-10.0) H % (1.0-10.0) Eosinophils (%) (Auto) 2.5 % (0.0-3.0) % (0.0-3.0) Basophils (%) (Auto) 0.7 % (0.0-2.0) % (0.0-2.0) Sodium Level 142 MMOL/L (136-145) 144 MMOL/L (136-145) Potassium Level 5.8 MMOL/L (3.5-5.1) H 4.5 MMOL/L (3.5-5.1) Chloride Level 112 MMOL/L (98-107) H 112 MMOL/L (98-107) H Carbon Dioxide Level 19 MMOL/L (21-32) L 21 MMOL/L (21-32) Anion Gap 11 mmol/L (5-15) 11 mmol/L (5-15) Blood Urea Nitrogen 54 mg/dL (7-18) H 47 mg/dL (7-18) H Creatinine 2.3 MG/DL (0.55-1.30) H 2.0 MG/DL (0.55-1.30) H Estimat Glomerular Filtration Rate mL/min (>60) mL/min (>60) Glucose Level 77 MG/DL (74-106) 98 MG/DL (74-106) Uric Acid 4.4 MG/DL (2.6-7.2) Calcium Level 8.6 MG/DL (8.5-10.1) 8.2 MG/DL (8.5-10.1) L Magnesium Level 2.4 MG/DL (1.8-2.4) 2.3 MG/DL (1.8-2.4) Ferritin > 2000 NG/ML (8-388) H > 2000 NG/ML (8-388) H Total Bilirubin 0.2 MG/DL (0.2-1.0) 0.4 MG/DL (0.2-1.0) Aspartate Amino Transf (AST/SGOT) 25 U/L (15-37) 24 U/L (15-37) Alanine Aminotransferase (ALT/SGPT) 19 U/L (12-78) 18 U/L (12-78) Alkaline Phosphatase 149 U/L (46-116) H 138 U/L (46-116) H C-Reactive Protein, Quantitative 0.6 mg/dL (0.00-0.90) Pro-B-Type Natriuretic Peptide 5573 pg/mL (0-125) H Total Protein 6.5 G/DL (6.4-8.2) 5.8 G/DL (6.4-8.2) L Albumin 3.1 G/DL (3.4-5.0) L 3.0 G/DL (3.4-5.0) L Globulin 3.4 g/dL 2.8 g/dL Albumin/Globulin Ratio 0.9 (1.0-2.7) L 1.1 (1.0-2.7) Differential Total Cells Counted 100 Neutrophils % (Manual) 57 % (45-75) Lymphocytes % (Manual) 25 % (20-45) Monocytes % (Manual) 13 % (1-10) H Eosinophils % (Manual) 4 % (0-3) H Basophils % (Manual) 1 % (0-2) Band Neutrophils 0 % (0-8) Platelet Estimate Decreased L Platelet Morphology Normal Hypochromasia 3+ Prothrombin Time 10.0 SEC (9.30-11.50) Prothromb Time International Ratio 1.0 (0.9-1.1) Activated Partial Thromboplast Time 26 SEC (23-33) Phosphorus Level 4.7 MG/DL (2.5-4.9) Troponin I 0.022 ng/mL (0.000-0.056) Iron Level 127 ug/dL (50-175) Total Iron Binding Capacity 130 ug/dL (250-450) L Percent Iron Saturation 98 % (15-50) H Unsaturated Iron Binding 3 ug/dL (112-346) L Urine Color Pale yellow Urine Appearance Slightly cloudy Urine pH 6 (4.5-8.0) Urine Specific Tie Siding 1.010 (1.005-1.035) Urine Protein 3+ (NEGATIVE) H Urine Glucose (UA) Negative (NEGATIVE) Urine Ketones Negative (NEGATIVE) Urine Occult Blood 1+ (NEGATIVE) H Urine Nitrite Negative (NEGATIVE) Urine Bilirubin Negative (NEGATIVE) Urine Urobilinogen Normal MG/DL (0.0-1.0) Urine Leukocyte Esterase Negative (NEGATIVE) Urine RBC 0-2 /HPF (0 - 2) Urine WBC 0-2 /HPF (0 - 2) Urine Squamous Epithelial Cells Few /LPF (NONE/OCC) Urine Bacteria Moderate /HPF (NONE) H Urine Eosinophils None seen Urine Random Sodium 126 MEQ/L (20-110) H Intake and Output 03/06/17 03/07/17 19:00 07:00 Intake Total 236 ml Output Total 91 ml Balance 145 ml Intake Oral 236 ml Output Post Void Residual 91 ml Bladder Scan Volume Amount 76-100 ml # Voids 1 2 Assessment/Plan Problem List: (1) Renal failure (ARF), acute on chronic Assessment & Plan: See nephrology note-Dr Rodrigez (2) Chest pain Assessment & Plan: Secondary to hypoglycemic event. Await echocardiogram-See cardiology note-Dr Yost (3) Hyperkalemia Assessment & Plan: Resolved; S/P Kayexalate. See nephrology note-Dr Rodrigez (4) Diabetes mellitus type II, uncontrolled Assessment & Plan: Continue novolog sliding scale. (5) Hypertension Assessment & Plan: Continue norvasc (6) Hypoglycemia Assessment & Plan: Resolved Status: not improved CHIDI SAPP Mar 07, 2017 11:38
[2017-03-07] MEDS: Vitamin B12 1000mcg/ml Inj SUBQ SCH (16:55)
[2017-03-08 00:16] VITALS: BP 162/60
[2017-03-08 04:09] VITALS: BP 151/82
[2017-03-08 07:50] LABS: HEMATOCRIT 30.2 % (37.0-47.0); HEMOGLOBIN 9.3 G/DL (12.0-16.0); MEAN CORPUSCULAR VOLUME 109 FL (80-99); PLATELET COUNT 72 K/UL (150-450); RED BLOOD COUNT 2.77 M/UL (4.20-5.40); RED CELL DISTRIBUTION WIDTH 20.3 % (11.6-14.8)
[2017-03-08] MEDS: NovoLOG Insulin Flexpen SUBQ SCH ×4 (07:58→20:24)
[2017-03-08 08:00] VITALS: BP 175/85
[2017-03-08 08:38] LABS: ALANINE AMINOTRANSFERASE 18 U/L (12-78); ALBUMIN/GLOBULIN RATIO 0.8 (1.0-2.7); ALKALINE PHOSPHATASE 145 U/L (46-116); ANION GAP 12 mmol/L (5-15); ASPARTATE AMINO TRANSFERASE 24 U/L (15-37); BILIRUBIN,TOTAL 0.5 MG/DL (0.2-1.0); BLOOD UREA NITROGEN 41 mg/dL (7-18); CALCIUM 8.4 MG/DL (8.5-10.1); CARBON DIOXIDE 23 MMOL/L (21-32); CHLORIDE 108 MMOL/L (98-107); CREATININE 1.7 MG/DL (0.55-1.30); PHOSPHORUS 4.2 MG/DL (2.5-4.9); POTASSIUM 3.4 MMOL/L (3.5-5.1); SODIUM 143 MMOL/L (136-145)
[2017-03-08] MEDS: Docusate 100mg cap ORAL SCH ×3 (08:38→16:10)
--- NOTE | 2017-03-08 09:33 | Diagnostic Imaging Report ---
APPROVED REPORT CPT Code: 23095 Present Symptoms Lower Extremity Pain: Bilateral Comments: ALOC BILATERAL: Imaging reveals a patent deep venous system bilaterally. There is no evidence of thrombus within the femoral, popliteal or tibial segments. The greater saphenous veins are also within normal limits. Doppler indicates normal spontaneous flow within these segments.
--- NOTE | 2017-03-08 09:47 | Diagnostic Imaging Report ---
Indication: Reason For Exam: PAIN Technique: Right shoulder, 3 views Comparison: None. Findings: The osseous structures are intact. There is no fracture or destruction. The visualized joints are normal. The soft tissues are unremarkable. Impression: Normal.
--- NOTE | 2017-03-08 10:46 | Nephrology Progress Note ---
Assessment/Plan Problem List: (1) Hyperkalemia, diminished renal excretion (2) Renal insufficiency (3) ATN (acute tubular necrosis) Assessment Acute renal failure- Cr lowering ? Underlying CKD DM ? Nephropathy HTN , ? Hypertensive kidney disease Anemia Plan Adjust BP meds add hydralazine Avoid Nephrotoxics K supplement as needed Norvasc change to 10 mg Urine analysis and studies P Folate Vit D B12 Monitor renal parameters Per orders DC planning?? Subjective ROS Limited/Unobtainable: No Constitutional: Reports: malaise Objective Objective Last 24 Hour Vital Signs Date Time Temp Pulse Resp B/P (MAP) Pulse Ox O2 Delivery O2 Flow Rate FiO2 03/08/17 08:38 67 175/85 03/08/17 08:00 97.1 67 18 175/85 100 Room Air 03/08/17 04:09 97.4 73 18 151/82 94 Room Air 03/08/17 04:00 76 03/08/17 00:16 96.6 69 18 162/60 95 Room Air 03/08/17 00:00 74 03/07/17 20:19 97.3 68 19 150/77 96 Room Air 03/07/17 20:00 69 03/07/17 19:25 73 20 Room Air 21 03/07/17 16:55 161/80 03/07/17 16:30 97.9 75 20 161/80 95 Room Air 03/07/17 16:12 97.5 69 20 165/79 95 Room Air 03/07/17 16:00 74 03/07/17 14:05 97.9 68 20 152/70 96 Room Air 03/07/17 13:50 97.9 70 20 151/79 96 Room Air 03/07/17 12:24 164/69 03/07/17 12:10 97.0 75 20 164/69 94 Room Air 03/07/17 12:03 73 03/07/17 10:47 98.5 Intake and Output 03/07/17 03/08/17 19:00 07:00 Intake Total 1090 ml Output Total 600 ml Balance 1090 ml -600 ml Intake Oral 840 ml Blood Product 250 ml Output Urine Total 600 ml # Voids 4 # Bowel Movements 1 1 Laboratory Tests 03/07/17 12:20: Stool Occult Blood [Pending] 03/08/17 05:35: White Blood Count 6.0, Red Blood Count 2.77L, Hemoglobin 9.3L, Hematocrit 30.2L , Mean Corpuscular Volume 109H, Mean Corpuscular Hemoglobin 33.6H, Mean Corpuscular Hemoglobin Concent 30.8L, Red Cell Distribution Width 20.3H, Platelet Count 72L, Mean Platelet Volume 6.4L, Neutrophils (%) (Auto) , Lymphocytes (%) (Auto) , Monocytes (%) (Auto) , Eosinophils (%) (Auto) , Basophils (%) (Auto) , Differential Total Cells Counted 100, Neutrophils % ( Manual) 74, Lymphocytes % (Manual) 17L, Monocytes % (Manual) 9, Eosinophils % ( Manual) 0, Basophils % (Manual) 0, Band Neutrophils 0, Platelet Estimate DecreasedL, Platelet Morphology Normal, Hypochromasia 2+, Anisocytosis 2+, Macrocytosis 1+, Sodium Level 143, Potassium Level 3.4L, Chloride Level 108H, Carbon Dioxide Level 23, Anion Gap 12, Blood Urea Nitrogen 41H, Creatinine 1.7H , Estimat Glomerular Filtration Rate , Glucose Level 126H, Uric Acid 5.5, Calcium Level 8.4L, Phosphorus Level 4.2, Magnesium Level 1.9, Total Bilirubin 0.5, Aspartate Amino Transf (AST/SGOT) 24, Alanine Aminotransferase (ALT/SGPT) 18, Alkaline Phosphatase 145H, Troponin I 0.036, C-Reactive Protein, Quantitative 1.7H, Pro-B-Type Natriuretic Peptide 30437U, Total Protein 6.6, Albumin 3.0L, Globulin 3.6, Albumin/Globulin Ratio 0.8L 03/08/17 06:00: Urine Eosinophils None seen Height (Feet): 5 Height (Inches): 1.00 Weight (Pounds): 160 Objective no change RACHEL MCKENZIE Mar 08, 2017 10:46
[2017-03-08 12:00] VITALS: BP 157/75
[2017-03-08] MEDS ORDERED: HydrALAZINE 25mg tab ORAL SCH (14:00)
--- NOTE | 2017-03-08 14:13 | Pulmonology Progress Note ---
Assessment/Plan Assessment/Plan ASSESSMENT Chest pain,likely atypical ( due to fall) Acute renal failure , poss on underlying CRI ( due to DM and HTN) acute hyperkalemia, diminished renal excretion -resolved hypoglycemia associated with DM HTN anemia requiring blood transfusion folate deficiency anemia UTI with E coli severe pulmonary HTN PLAN OF CARE Tele troponin x 2 negative ECG no acute ischemic changes CP likely atypical occurred after fall, no further episodes ECHO cardio eval-appreciated CP noncardiac as per cardio HH better after transfusion stool OB negative anemia w/up with sufficient iron but low folate, folate added Nitro prn lipid panel stable pro BNP 479 O2 titrate prn, HHN prn Nephro follows s/p Kayexalate, K down to normal creat further trending down renal US renal studies Venous Duplex BLE X ray R shoulder -no fracture or dislocation start empiric abx, urine cx + GNB DVT GI prophylaxis BS management with SS of insulin prn BP management with CCB and Clonidine prn transfer to [facility] floor dc plan for tomorrow ( wait for urine culture) case discussed and evaluated by supervising physician Subjective Allergies: Coded Allergies: No Known Allergies (Unverified , 03/05/17) Subjective HH better after transfusion cardio sen and evaluated Objective Last 24 Hour Vital Signs Date Time Temp Pulse Resp B/P (MAP) Pulse Ox O2 Delivery O2 Flow Rate FiO2 03/08/17 13:23 157/75 03/08/17 12:00 96.4 66 19 157/75 98 Room Air 03/08/17 11:21 69 160/79 03/08/17 08:38 67 175/85 03/08/17 08:00 66 03/08/17 08:00 97.1 67 18 175/85 100 Room Air 03/08/17 06:40 70 20 Room Air 21 03/08/17 04:09 97.4 73 18 151/82 94 Room Air 03/08/17 04:00 76 03/08/17 00:16 96.6 69 18 162/60 95 Room Air 03/08/17 00:00 74 03/07/17 20:19 97.3 68 19 150/77 96 Room Air 03/07/17 20:00 69 03/07/17 19:25 73 20 Room Air 21 03/07/17 16:55 161/80 03/07/17 16:30 97.9 75 20 161/80 95 Room Air 03/07/17 16:12 97.5 69 20 165/79 95 Room Air 03/07/17 16:00 74 Intake and Output 03/07/17 03/08/17 19:00 07:00 Intake Total 1090 ml Output Total 600 ml Balance 1090 ml -600 ml Intake Oral 840 ml Blood Product 250 ml Output Urine Total 600 ml # Voids 4 # Bowel Movements 1 1 Objective General Appearance: no acute distress HEENT: normocephalic, atraumatic, anicteric, mucous membranes moist Respiratory/Chest: lungs clear, no respiratory distress, no accessory muscle use Cardiovascular: normal peripheral pulses, normal rate, regular rhythm - SR on tele Abdomen: soft, non tender, non distended Extremities: no edema, pedal pulses normal Neurologic/Psychiatric: abnormal gait, oriented x 3, responsive Musculoskeletal: atrophy - BLE Microbiology Date/Time Source Procedure Growth Status 03/07/17 10:30 Urine,Clean Catch Urine Culture - Preliminary Gram Negative Bacillus 1 Resulted Laboratory Tests 03/08/17 05:35: White Blood Count 6.0, Red Blood Count 2.77L, Hemoglobin 9.3L, Hematocrit 30.2L , Mean Corpuscular Volume 109H, Mean Corpuscular Hemoglobin 33.6H, Mean Corpuscular Hemoglobin Concent 30.8L, Red Cell Distribution Width 20.3H, Platelet Count 72L, Mean Platelet Volume 6.4L, Neutrophils (%) (Auto) , Lymphocytes (%) (Auto) , Monocytes (%) (Auto) , Eosinophils (%) (Auto) , Basophils (%) (Auto) , Differential Total Cells Counted 100, Neutrophils % ( Manual) 74, Lymphocytes % (Manual) 17L, Monocytes % (Manual) 9, Eosinophils % ( Manual) 0, Basophils % (Manual) 0, Band Neutrophils 0, Platelet Estimate DecreasedL, Platelet Morphology Normal, Hypochromasia 2+, Anisocytosis 2+, Macrocytosis 1+, Sodium Level 143, Potassium Level 3.4L, Chloride Level 108H, Carbon Dioxide Level 23, Anion Gap 12, Blood Urea Nitrogen 41H, Creatinine 1.7H , Estimat Glomerular Filtration Rate , Glucose Level 126H, Uric Acid 5.5, Calcium Level 8.4L, Phosphorus Level 4.2, Magnesium Level 1.9, Total Bilirubin 0.5, Aspartate Amino Transf (AST/SGOT) 24, Alanine Aminotransferase (ALT/SGPT) 18, Alkaline Phosphatase 145H, Troponin I 0.036, C-Reactive Protein, Quantitative 1.7H, Pro-B-Type Natriuretic Peptide 43420A, Total Protein 6.6, Albumin 3.0L, Globulin 3.6, Albumin/Globulin Ratio 0.8L 03/08/17 06:00: Urine Eosinophils None seen Current Medications Medications (Trade) Dose Ordered Sig/Hellen Route PRN Reason Start Time Stop Time Status Last Admin Dose Admin Acetaminophen (Tylenol) 650 mg Q4H PRN ORAL fever 03/05/17 22:30 04/04/17 22:29 Albuterol/ Ipratropium (Albuterol/ Ipratropium) 3 ml Q6HRT PRN HHN dyspnea 03/05/17 22:30 03/10/17 22:29 Amlodipine Besylate (Norvasc) 10 mg DAILY ORAL 03/09/17 09:00 04/08/17 08:59 Clonidine HCl (Catapres Tab) 0.1 mg Q4H PRN ORAL For High Blood Pressure 03/05/17 22:30 04/04/17 22:29 03/07/17 16:55 Cyanocobalamin (Vitamin B12) 1,000 mcg DAILY@1700 SUBQ 03/06/17 17:00 03/08/17 17:01 03/07/17 16:55 Dextrose (Dextrose 50%) STAT PRN IV Hypoglycemia 03/05/17 22:30 04/04/17 22:29 03/06/17 05:52 Docusate Sodium (Colace) 100 mg THREE TIMES A DAY ORAL 03/06/17 18:00 04/05/17 17:59 03/07/17 16:55 Ergocalciferol (Drisdol) 50,000 intlu QWEEK@1700 ORAL 03/06/17 17:00 04/05/17 16:59 03/06/17 16:54 Folic Acid (Folate) 5 mg DAILY ORAL 03/06/17 15:45 04/05/17 15:44 03/08/17 08:37 Hydralazine HCl (Apresoline) 25 mg Q8HR ORAL 03/08/17 14:00 04/07/17 13:59 03/08/17 13:23 Insulin Aspart (NovoLOG) BEFORE MEALS AND HS SUBQ 03/06/17 06:30 04/05/17 06:29 03/08/17 11:22 Morphine Sulfate (Morphine Sulfate) 1 mg EVERY 4 HOURS PRN IVP For Pain 03/05/17 22:30 03/12/17 22:29 03/07/17 10:17 Nitroglycerin (Ntg) 0.4 mg Q5M PRN SL Prn Chest Pain 03/06/17 20:30 04/05/17 20:29 Ondansetron HCl (Zofran) 4 mg Q6H PRN IVP Nausea & Vomiting 03/05/17 22:30 04/04/17 22:29 Pantoprazole (Protonix) 40 mg DAILY ORAL 03/06/17 16:00 04/05/17 15:59 03/08/17 08:37 Polyethylene Glycol (Miralax) 17 gm HSPRN PRN ORAL Constipation 03/05/17 22:30 04/04/17 22:29 Zolpidem Tartrate (Ambien) 5 mg HSPRN PRN ORAL Insomnia 03/05/17 22:30 03/12/17 22:29 03/06/17 23:11 Subhash ([facility])Dee Dee NP Mar 08, 2017 14:13
--- NOTE | 2017-03-08 14:24 | Internal Med Progress Note ---
Subjective Date of Service: Mar 08, 2017 Physician Name Chidi Sapp Attending Physician Syed Lala MD Current Medications Medications (Trade) Dose Ordered Sig/Hellen Route PRN Reason Start Time Stop Time Status Last Admin Dose Admin Acetaminophen (Tylenol) 650 mg Q4H PRN ORAL fever 03/05/17 22:30 04/04/17 22:29 Albuterol/ Ipratropium (Albuterol/ Ipratropium) 3 ml Q6HRT PRN HHN dyspnea 03/05/17 22:30 03/10/17 22:29 Amlodipine Besylate (Norvasc) 10 mg DAILY ORAL 03/09/17 09:00 04/08/17 08:59 Ceftriaxone Sodium 1 gm/ Dextrose 55 ml @ 110 mls/hr Q24H IVPB 03/08/17 15:00 03/15/17 23:59 Clonidine HCl (Catapres Tab) 0.1 mg Q4H PRN ORAL For High Blood Pressure 03/05/17 22:30 04/04/17 22:29 03/07/17 16:55 Cyanocobalamin (Vitamin B12) 1,000 mcg DAILY@1700 SUBQ 03/06/17 17:00 03/08/17 17:01 03/07/17 16:55 Dextrose (Dextrose 50%) STAT PRN IV Hypoglycemia 03/05/17 22:30 04/04/17 22:29 03/06/17 05:52 Docusate Sodium (Colace) 100 mg THREE TIMES A DAY ORAL 03/06/17 18:00 04/05/17 17:59 03/07/17 16:55 Ergocalciferol (Drisdol) 50,000 intlu QWEEK@1700 ORAL 03/06/17 17:00 04/05/17 16:59 03/06/17 16:54 Folic Acid (Folate) 5 mg DAILY ORAL 03/06/17 15:45 04/05/17 15:44 03/08/17 08:37 Hydralazine HCl (Apresoline) 25 mg Q8HR ORAL 03/08/17 14:00 04/07/17 13:59 03/08/17 13:23 Insulin Aspart (NovoLOG) BEFORE MEALS AND HS SUBQ 03/06/17 06:30 04/05/17 06:29 03/08/17 11:22 Morphine Sulfate (Morphine Sulfate) 1 mg EVERY 4 HOURS PRN IVP For Pain 03/05/17 22:30 03/12/17 22:29 03/07/17 10:17 Nitroglycerin (Ntg) 0.4 mg Q5M PRN SL Prn Chest Pain 03/06/17 20:30 04/05/17 20:29 Ondansetron HCl (Zofran) 4 mg Q6H PRN IVP Nausea & Vomiting 03/05/17 22:30 04/04/17 22:29 Pantoprazole (Protonix) 40 mg DAILY ORAL 03/06/17 16:00 04/05/17 15:59 03/08/17 08:37 Polyethylene Glycol (Miralax) 17 gm HSPRN PRN ORAL Constipation 03/05/17 22:30 04/04/17 22:29 Zolpidem Tartrate (Ambien) 5 mg HSPRN PRN ORAL Insomnia 03/05/17 22:30 03/12/17 22:29 03/06/17 23:11 Allergies: Coded Allergies: No Known Allergies (Unverified , 03/05/17) ROS Limited/Unobtainable: No Constitutional: Reports: no symptoms HEENT: Reports: no symptoms Cardiovascular: Reports: chest pain Respiratory: Reports: no symptoms Gastrointestinal/Abdominal: Reports: no symptoms Genitourinary: Reports: no symptoms Neurologic/Psychiatric: Reports: no symptoms Subjective 76 YO F admitted with chest pain. Found to have hyperkalemia and worsening renal failure. Objective Last Vital Signs Date Time Temp Pulse Resp B/P (MAP) Pulse Ox O2 Delivery O2 Flow Rate FiO2 03/08/17 13:23 157/75 03/08/17 12:00 96.4 66 19 98 Room Air 03/08/17 06:40 21 Laboratory Tests Test 03/08/17 05:35 03/08/17 06:00 White Blood Count 6.0 K/UL (4.8-10.8) Red Blood Count 2.77 M/UL (4.20-5.40) L Hemoglobin 9.3 G/DL (12.0-16.0) L Hematocrit 30.2 % (37.0-47.0) L Mean Corpuscular Volume 109 FL (80-99) H Mean Corpuscular Hemoglobin 33.6 PG (27.0-31.0) H Mean Corpuscular Hemoglobin Concent 30.8 G/DL (32.0-36.0) L Red Cell Distribution Width 20.3 % (11.6-14.8) H Platelet Count 72 K/UL (150-450) L Mean Platelet Volume 6.4 FL (6.5-10.1) L Neutrophils (%) (Auto) % (45.0-75.0) Lymphocytes (%) (Auto) % (20.0-45.0) Monocytes (%) (Auto) % (1.0-10.0) Eosinophils (%) (Auto) % (0.0-3.0) Basophils (%) (Auto) % (0.0-2.0) Differential Total Cells Counted 100 Neutrophils % (Manual) 74 % (45-75) Lymphocytes % (Manual) 17 % (20-45) L Monocytes % (Manual) 9 % (1-10) Eosinophils % (Manual) 0 % (0-3) Basophils % (Manual) 0 % (0-2) Band Neutrophils 0 % (0-8) Platelet Estimate Decreased L Platelet Morphology Normal Hypochromasia 2+ Anisocytosis 2+ Macrocytosis 1+ Sodium Level 143 MMOL/L (136-145) Potassium Level 3.4 MMOL/L (3.5-5.1) L Chloride Level 108 MMOL/L (98-107) H Carbon Dioxide Level 23 MMOL/L (21-32) Anion Gap 12 mmol/L (5-15) Blood Urea Nitrogen 41 mg/dL (7-18) H Creatinine 1.7 MG/DL (0.55-1.30) H Estimat Glomerular Filtration Rate mL/min (>60) Glucose Level 126 MG/DL (74-106) H Uric Acid 5.5 MG/DL (2.6-7.2) Calcium Level 8.4 MG/DL (8.5-10.1) L Phosphorus Level 4.2 MG/DL (2.5-4.9) Magnesium Level 1.9 MG/DL (1.8-2.4) Total Bilirubin 0.5 MG/DL (0.2-1.0) Aspartate Amino Transf (AST/SGOT) 24 U/L (15-37) Alanine Aminotransferase (ALT/SGPT) 18 U/L (12-78) Alkaline Phosphatase 145 U/L (46-116) H Troponin I 0.036 ng/mL (0.000-0.056) C-Reactive Protein, Quantitative 1.7 mg/dL (0.00-0.90) H Pro-B-Type Natriuretic Peptide 61536 pg/mL (0-125) H Total Protein 6.6 G/DL (6.4-8.2) Albumin 3.0 G/DL (3.4-5.0) L Globulin 3.6 g/dL Albumin/Globulin Ratio 0.8 (1.0-2.7) L Urine Eosinophils None seen Microbiology Date/Time Source Procedure Growth Status 03/07/17 10:30 Urine,Clean Catch Urine Culture - Preliminary Gram Negative Bacillus 1 Resulted Intake and Output 03/07/17 03/08/17 19:00 07:00 Intake Total 1090 ml Output Total 600 ml Balance 1090 ml -600 ml Intake Oral 840 ml Blood Product 250 ml Output Urine Total 600 ml # Voids 4 # Bowel Movements 1 1 Objective General Appearance: WD/WN, no apparent distress EENT: PERRL/EOMI, normal ENT inspection Neck: non-tender, normal alignment, supple, normal inspection Cardiovascular: normal peripheral pulses, normal rate, regular rhythm, no gallop/murmur, no JVD Respiratory/Chest: chest wall non-tender, lungs clear, normal breath sounds, no respiratory distress, no accessory muscle use Abdomen: normal bowel sounds, non tender, soft, no organomegaly, no mass Extremities: normal range of motion, non-tender 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 Await echocardiogram-See cardiology note-Dr Yost (3) Hyperkalemia Assessment & Plan: Resolved; S/P Kayexalate. See nephrology note-Dr Rodrigez (4) Diabetes mellitus type II, uncontrolled Assessment & Plan: Continue novolog sliding scale. (5) Hypertension Assessment & Plan: Continue norvasc (6) Hypoglycemia Assessment & Plan: Resolved Status: not improved CHIDI SAPP Mar 08, 2017 14:24
[2017-03-08] MEDS ORDERED: cefTRIAXone 1 GM in D5W 55 ML IVPB SCH (15:00)
[2017-03-08] MEDS ORDERED: Nitroglycerin Subl 0.4mg tab SL PRN (15:45)
[2017-03-08] MEDS ORDERED: Morphine Sulfate 2mg/ml Inj IVP PRN (15:49)
[2017-03-08] MEDS ORDERED: Miralax 17gm pkt ORAL PRN (15:49)
[2017-03-08] MEDS ORDERED: Zolpidem 5mg tab ORAL PRN (15:50)
[2017-03-08 16:00] VITALS: BP 153/77
--- NOTE | 2017-03-08 16:44 | Cardiology Progress Note ---
Assessment/Plan Assessment/Plan 1. Chest discomfort most likely secondary to hypoglycemic event. She had typical symptoms of dizziness, lightheadedness, and blurred vision due to hypoglycemia.On arrival to the emergency department, a 12-lead electrocardiogram did not show any acute ischemic changes. We would like to obtain 2D echocardiography for assessment of wall motion. At this point, I would wait for the result of 2D echocardiography. No other Cardiology cardiac intervention is necessary. We will await this result of the second troponin I level to ultimately rule out acute myocardial infarction. In the meantime, the patient will be continued on aspirin and statin as she is diabetic. 2. Diabetes mellitus with hypoglycemic event. 3. Hypertension. The patient will benefit from ARMANI inhibitors, which will be started and calcium channel adi until the acute renal failure is resolved. Objective Last 24 Hour Vital Signs Date Time Temp Pulse Resp B/P (MAP) Pulse Ox O2 Delivery O2 Flow Rate FiO2 03/08/17 13:23 157/75 03/08/17 12:00 96.4 66 19 157/75 98 Room Air 03/08/17 12:00 66 03/08/17 11:21 69 160/79 03/08/17 08:38 67 175/85 03/08/17 08:00 66 03/08/17 08:00 97.1 67 18 175/85 100 Room Air 03/08/17 06:40 70 20 Room Air 03/08/17 04:09 97.4 73 18 151/82 94 Room Air 03/08/17 04:00 76 03/08/17 00:16 96.6 69 18 162/60 95 Room Air 03/08/17 00:00 74 03/07/17 20:19 97.3 68 19 150/77 96 Room Air 03/07/17 20:00 69 03/07/17 19:25 73 20 Room Air 21 03/07/17 16:55 161/80 Intake and Output 03/07/17 03/08/17 19:00 07:00 Intake Total 1090 ml Output Total 600 ml Balance 1090 ml -600 ml Intake Oral 840 ml Blood Product 250 ml Output Urine Total 600 ml # Voids 4 # Bowel Movements 1 1 2D Echo: EF 60%, RVSP 80 mmHg, Grade I LVDD, Mod MR, LVH, LAE Laboratory Tests Test 03/08/17 05:35 03/08/17 06:00 White Blood Count 6.0 K/UL (4.8-10.8) Red Blood Count 2.77 M/UL (4.20-5.40) L Hemoglobin 9.3 G/DL (12.0-16.0) L Hematocrit 30.2 % (37.0-47.0) L Mean Corpuscular Volume 109 FL (80-99) H Mean Corpuscular Hemoglobin 33.6 PG (27.0-31.0) H Mean Corpuscular Hemoglobin Concent 30.8 G/DL (32.0-36.0) L Red Cell Distribution Width 20.3 % (11.6-14.8) H Platelet Count 72 K/UL (150-450) L Mean Platelet Volume 6.4 FL (6.5-10.1) L Neutrophils (%) (Auto) % (45.0-75.0) Lymphocytes (%) (Auto) % (20.0-45.0) Monocytes (%) (Auto) % (1.0-10.0) Eosinophils (%) (Auto) % (0.0-3.0) Basophils (%) (Auto) % (0.0-2.0) Differential Total Cells Counted 100 Neutrophils % (Manual) 74 % (45-75) Lymphocytes % (Manual) 17 % (20-45) L Monocytes % (Manual) 9 % (1-10) Eosinophils % (Manual) 0 % (0-3) Basophils % (Manual) 0 % (0-2) Band Neutrophils 0 % (0-8) Platelet Estimate Decreased L Platelet Morphology Normal Hypochromasia 2+ Anisocytosis 2+ Macrocytosis 1+ Sodium Level 143 MMOL/L (136-145) Potassium Level 3.4 MMOL/L (3.5-5.1) L Chloride Level 108 MMOL/L (98-107) H Carbon Dioxide Level 23 MMOL/L (21-32) Anion Gap 12 mmol/L (5-15) Blood Urea Nitrogen 41 mg/dL (7-18) H Creatinine 1.7 MG/DL (0.55-1.30) H Estimat Glomerular Filtration Rate mL/min (>60) Glucose Level 126 MG/DL (74-106) H Uric Acid 5.5 MG/DL (2.6-7.2) Calcium Level 8.4 MG/DL (8.5-10.1) L Phosphorus Level 4.2 MG/DL (2.5-4.9) Magnesium Level 1.9 MG/DL (1.8-2.4) Total Bilirubin 0.5 MG/DL (0.2-1.0) Aspartate Amino Transf (AST/SGOT) 24 U/L (15-37) Alanine Aminotransferase (ALT/SGPT) 18 U/L (12-78) Alkaline Phosphatase 145 U/L (46-116) H Troponin I 0.036 ng/mL (0.000-0.056) C-Reactive Protein, Quantitative 1.7 mg/dL (0.00-0.90) H Pro-B-Type Natriuretic Peptide 52950 pg/mL (0-125) H Total Protein 6.6 G/DL (6.4-8.2) Albumin 3.0 G/DL (3.4-5.0) L Globulin 3.6 g/dL Albumin/Globulin Ratio 0.8 (1.0-2.7) L Urine Eosinophils None seen Microbiology Date/Time Source Procedure Growth Status 03/07/17 10:30 Urine,Clean Catch Urine Culture - Preliminary Gram Negative Bacillus 1 Resulted Objective GENERAL: The patient is a very unfortunate 76-year-old female, in no apparent respiratory distress. Alert and oriented x4. HEENT: Atraumatic and normocephalic. Anicteric. Pupils are equal, round, and reactive to light and accommodation. Extraocular muscles intact. NECK: JVP less than 5 cm. No carotid bruit. Carotid upstrokes 2+ bilaterally. CARDIOVASCULAR: Normal S1 and S2. Regular rate and rhythm. No murmurs, gallops, or rubs. PMI is at fourth intercostal space at the midclavicular line. LUNGS: Clear to auscultation bilaterally. ABDOMEN: Soft, nontender, and nondistended. No hepatosplenomegaly. Positive bowel sounds. EXTREMITIES: No evidence of edema, clubbing, or cyanosis. YOMAIRA RTAYLOR Mar 08, 2017 16:44
[2017-03-08] MEDS ORDERED: Vitamin B12 1000mcg/ml Inj SUBQ SCH (17:00)
[2017-03-08] MEDS ORDERED: Albuterol/Ipratropium 3ml neb HHN PRN (19:00)
[2017-03-08 20:00] VITALS: BP 154/74
[2017-03-08] MEDS: HydrALAZINE 25mg tab ORAL SCH (21:29)
[2017-03-09] VITALS: BP 151/84
[2017-03-09 04:50] VITALS: BP 156/73
[2017-03-09] MEDS: HydrALAZINE 25mg tab ORAL SCH (05:40)
[2017-03-09] MEDS: NovoLOG Insulin Flexpen SUBQ SCH ×2 (05:42→11:30)
[2017-03-09 07:33] LABS: HEMATOCRIT 32.1 % (37.0-47.0); MEAN CORPUSCULAR VOLUME 109 FL (80-99); PLATELET COUNT 68 K/UL (150-450); RED BLOOD COUNT 2.95 M/UL (4.20-5.40); RED CELL DISTRIBUTION WIDTH 19.7 % (11.6-14.8); WHITE BLOOD COUNT 5.3 K/UL (4.8-10.8)
[2017-03-09 07:47] LABS: ANION GAP 10 mmol/L (5-15); BLOOD UREA NITROGEN 40 mg/dL (7-18); CALCIUM 8.7 MG/DL (8.5-10.1); CARBON DIOXIDE 24 MMOL/L (21-32); CHLORIDE 108 MMOL/L (98-107); CREATININE 1.7 MG/DL (0.55-1.30); POTASSIUM 3.2 MMOL/L (3.5-5.1); SODIUM 142 MMOL/L (136-145)
[2017-03-09 08:00] VITALS: BP 169/70
[2017-03-09] MEDS: Docusate 100mg cap ORAL SCH ×3 (08:22→13:00)
--- NOTE | 2017-03-09 11:38 | Internal Med Progress Note ---
Subjective Date of Service: Mar 09, 2017 Physician Name Chidi Sapp Attending Physician Syed Lala MD Current Medications Medications (Trade) Dose Ordered Sig/Hellen Route PRN Reason Start Time Stop Time Status Last Admin Dose Admin Acetaminophen (Tylenol) 650 mg Q4H PRN ORAL fever 03/08/17 18:30 04/04/17 22:29 Albuterol/ Ipratropium (Albuterol/ Ipratropium) 3 ml Q6HRT PRN HHN dyspnea 03/08/17 19:00 03/10/17 22:29 Amlodipine Besylate (Norvasc) 10 mg DAILY ORAL 03/09/17 09:00 04/08/17 08:59 03/09/17 08:22 Ceftriaxone Sodium 1 gm/ Dextrose 55 ml @ 110 mls/hr Q24H IVPB 03/09/17 15:00 03/15/17 23:59 Clonidine HCl (Catapres Tab) 0.1 mg Q4H PRN ORAL For High Blood Pressure 03/08/17 15:48 04/04/17 15:47 Dextrose (Dextrose 50%) STAT PRN IV Hypoglycemia 03/08/17 15:48 04/04/17 15:47 Docusate Sodium (Colace) 100 mg THREE TIMES A DAY ORAL 03/08/17 18:00 04/05/17 17:59 Ergocalciferol (Drisdol) 50,000 intlu QWEEK@1700 ORAL 03/13/17 17:00 04/05/17 16:59 Folic Acid (Folate) 5 mg DAILY ORAL 03/09/17 09:00 04/05/17 15:44 03/09/17 08:22 Hydralazine HCl (Apresoline) 25 mg Q8HR ORAL 03/08/17 22:00 04/07/17 13:59 03/09/17 05:40 Insulin Aspart (NovoLOG) BEFORE MEALS AND HS SUBQ 03/08/17 16:30 04/05/17 06:29 03/09/17 05:42 Morphine Sulfate (Morphine Sulfate) 1 mg EVERY 4 HOURS PRN IVP For Pain 03/08/17 15:49 03/12/17 15:48 Nitroglycerin (Ntg) 0.4 mg Q5M PRN SL Prn Chest Pain 03/08/17 15:45 04/05/17 20:29 Ondansetron HCl (Zofran) 4 mg Q6H PRN IVP Nausea & Vomiting 03/08/17 15:49 04/04/17 15:48 Pantoprazole (Protonix) 40 mg DAILY ORAL 03/09/17 09:00 04/05/17 15:59 03/09/17 08:22 Polyethylene Glycol (Miralax) 17 gm HSPRN PRN ORAL Constipation 03/08/17 15:49 04/04/17 15:48 Potassium Chloride (K-Dur) 20 meq TWICE A DAY ORAL 03/09/17 10:15 04/08/17 10:14 03/09/17 11:06 Zolpidem Tartrate (Ambien) 5 mg HSPRN PRN ORAL Insomnia 03/08/17 15:50 03/12/17 15:49 Allergies: Coded Allergies: No Known Allergies (Unverified , 03/05/17) ROS Limited/Unobtainable: No Constitutional: Reports: no symptoms HEENT: Reports: no symptoms Cardiovascular: Reports: no symptoms Respiratory: Reports: no symptoms Gastrointestinal/Abdominal: Reports: no symptoms Genitourinary: Reports: no symptoms Neurologic/Psychiatric: Reports: no symptoms Subjective 76 YO F admitted with chest pain. Found to have hyperkalemia and worsening renal failure. Cover for Int Med Dr Lala. Await discharge today Objective Last Vital Signs Date Time Temp Pulse Resp B/P (MAP) Pulse Ox O2 Delivery O2 Flow Rate FiO2 03/09/17 08:22 70 169/70 03/09/17 08:00 96.3 20 100 Room Air 03/09/17 07:35 21 Laboratory Tests Test 03/09/17 04:30 03/09/17 05:15 Urine Eosinophils None seen White Blood Count 5.3 K/UL (4.8-10.8) Red Blood Count 2.95 M/UL (4.20-5.40) L Hemoglobin 10.0 G/DL (12.0-16.0) L Hematocrit 32.1 % (37.0-47.0) L Mean Corpuscular Volume 109 FL (80-99) H Mean Corpuscular Hemoglobin 34.0 PG (27.0-31.0) H Mean Corpuscular Hemoglobin Concent 31.3 G/DL (32.0-36.0) L Red Cell Distribution Width 19.7 % (11.6-14.8) H Platelet Count 68 K/UL (150-450) L Mean Platelet Volume 6.0 FL (6.5-10.1) L Neutrophils (%) (Auto) % (45.0-75.0) Lymphocytes (%) (Auto) % (20.0-45.0) Monocytes (%) (Auto) % (1.0-10.0) Eosinophils (%) (Auto) % (0.0-3.0) Basophils (%) (Auto) % (0.0-2.0) Differential Total Cells Counted 100 Neutrophils % (Manual) 69 % (45-75) Lymphocytes % (Manual) 18 % (20-45) L Monocytes % (Manual) 10 % (1-10) Eosinophils % (Manual) 3 % (0-3) Basophils % (Manual) 0 % (0-2) Band Neutrophils 0 % (0-8) Platelet Estimate Decreased L Platelet Morphology Normal Hypochromasia 1+ Anisocytosis 2+ Macrocytosis 1+ Sodium Level 142 MMOL/L (136-145) Potassium Level 3.2 MMOL/L (3.5-5.1) L Chloride Level 108 MMOL/L (98-107) H Carbon Dioxide Level 24 MMOL/L (21-32) Anion Gap 10 mmol/L (5-15) Blood Urea Nitrogen 40 mg/dL (7-18) H Creatinine 1.7 MG/DL (0.55-1.30) H Estimat Glomerular Filtration Rate mL/min (>60) Glucose Level 153 MG/DL (74-106) H Calcium Level 8.7 MG/DL (8.5-10.1) Microbiology Date/Time Source Procedure Growth Status 03/07/17 10:30 Urine,Clean Catch Urine Culture - Final Escherichia Coli Complete Intake and Output 03/08/17 03/09/17 19:00 07:00 Intake Total 476 ml 120 ml Balance 476 ml 120 ml Intake Oral 476 ml 120 ml # Voids 2 3 # Bowel Movements 1 Objective General Appearance: WD/WN, no apparent distress EENT: PERRL/EOMI, normal ENT inspection Neck: non-tender, normal alignment, supple, normal inspection Cardiovascular: normal peripheral pulses, normal rate, regular rhythm, no gallop/murmur, no JVD Respiratory/Chest: chest wall non-tender, lungs clear, normal breath sounds, no respiratory distress, no accessory muscle use Abdomen: normal bowel sounds, non tender, soft, no organomegaly, no mass Extremities: normal range of motion, non-tender Neurologic: bending roll hand II-XII grossly normal, no motor/sensory deficits Skin: normal pigmentation, warm/dry Assessment/Plan Problem List: (1) Renal failure (ARF), acute on chronic Assessment & Plan: See nephrology note-Dr Rodrigez (2) Chest pain Assessment & Plan: Secondary to hypoglycemic event. Await echocardiogram-See cardiology note-Dr Yost (3) Hyperkalemia Assessment & Plan: Resolved; S/P Kayexalate. See nephrology note-Dr Rodrigez (4) Diabetes mellitus type II, uncontrolled Assessment & Plan: Continue novolog sliding scale. (5) Hypertension Assessment & Plan: Continue norvasc (6) Hypoglycemia Assessment & Plan: Resolved Status: stable Assessment/Plan Discharge home today. Cipro 500 mg BID X 5 day CHIDI SAPP Mar 09, 2017 11:38
[2017-03-09] MEDS ORDERED: CIPRO500 MG/51 PO (11:42)
[2017-03-09 12:00] VITALS: BP 145/96
--- NOTE | 2017-03-09 12:53 | Nephrology Progress Note ---
Assessment/Plan Problem List: (1) Hyperkalemia, diminished renal excretion (2) Renal insufficiency (3) ATN (acute tubular necrosis) Assessment Acute renal failure- Cr lowering ? Underlying CKD DM ? Nephropathy HTN , ? Hypertensive kidney disease Anemia Plan Adjust BP meds , increase hydralazine dose Avoid Nephrotoxics K supplement as needed Norvasc change to 10 mg Urine analysis and studies P Folate Vit D B12 Monitor renal parameters Per orders DC planning?? Subjective ROS Limited/Unobtainable: No Constitutional: Reports: malaise Objective Objective Last 24 Hour Vital Signs Date Time Temp Pulse Resp B/P (MAP) Pulse Ox O2 Delivery O2 Flow Rate FiO2 03/09/17 08:22 70 169/70 03/09/17 08:00 96.3 70 20 169/70 100 Room Air 03/09/17 07:35 67 16 Room Air 03/09/17 05:40 156/73 03/09/17 04:50 97.6 71 20 156/73 98 Room Air 03/09/17 00:00 97.5 76 18 151/84 96 Room Air 03/08/17 21:29 154/74 03/08/17 21:28 72 20 Room Air 21 03/08/17 20:00 97.4 70 20 154/74 97 Room Air 03/08/17 16:00 97.2 69 18 153/77 97 Room Air 03/08/17 13:23 157/75 Intake and Output 03/08/17 03/09/17 19:00 07:00 Intake Total 476 ml 120 ml Balance 476 ml 120 ml Intake Oral 476 ml 120 ml # Voids 2 3 # Bowel Movements 1 Laboratory Tests 03/09/17 04:30: Urine Eosinophils None seen 03/09/17 05:15: White Blood Count 5.3, Red Blood Count 2.95L, Hemoglobin 10.0L, Hematocrit 32.1L , Mean Corpuscular Volume 109H, Mean Corpuscular Hemoglobin 34.0H, Mean Corpuscular Hemoglobin Concent 31.3L, Red Cell Distribution Width 19.7H, Platelet Count 68L, Mean Platelet Volume 6.0L, Neutrophils (%) (Auto) , Lymphocytes (%) (Auto) , Monocytes (%) (Auto) , Eosinophils (%) (Auto) , Basophils (%) (Auto) , Differential Total Cells Counted 100, Neutrophils % ( Manual) 69, Lymphocytes % (Manual) 18L, Monocytes % (Manual) 10, Eosinophils % ( Manual) 3, Basophils % (Manual) 0, Band Neutrophils 0, Platelet Estimate DecreasedL, Platelet Morphology Normal, Hypochromasia 1+, Anisocytosis 2+, Macrocytosis 1+, Sodium Level 142, Potassium Level 3.2L, Chloride Level 108H, Carbon Dioxide Level 24, Anion Gap 10, Blood Urea Nitrogen 40H, Creatinine 1.7H , Estimat Glomerular Filtration Rate , Glucose Level 153H, Calcium Level 8.7 Height (Feet): 5 Height (Inches): 1.00 Weight (Pounds): 160 General Appearance: no apparent distress Respiratory/Chest: lungs clear Abdomen: soft Objective no change RACHEL MCKENZIE Mar 09, 2017 12:53
[2017-03-09] MEDS ORDERED: HydrALAZINE 25mg tab ORAL SCH (14:00)
[2017-03-09] MEDS ORDERED: NS 500ML ONE (14:29)
[2017-03-09] MEDS ORDERED: cefTRIAXone 1 GM in D5W 55 ML IVPB SCH (15:00)
--- NOTE | 2017-03-09 18:29 | Pulmonology Progress Note ---
Assessment/Plan Problems: (1) ACS (acute coronary syndrome) (2) ATN (acute tubular necrosis) (3) Hyperkalemia, diminished renal excretion (4) Hypoglycemia (5) Diabetes mellitus Assessment/Plan symptomatic treatment sliding scle pt/ot dc planning f/u with PMD as outpatient Subjective ROS Limited/Unobtainable: No Allergies: Coded Allergies: No Known Allergies (Unverified , 03/05/17) Objective Last 24 Hour Vital Signs Date Time Temp Pulse Resp B/P (MAP) Pulse Ox O2 Delivery O2 Flow Rate FiO2 03/09/17 12:00 97.4 20 145/96 98 Room Air 03/09/17 08:22 70 169/70 03/09/17 08:00 96.3 70 20 169/70 100 Room Air 03/09/17 07:35 67 16 Room Air 21 03/09/17 05:40 156/73 03/09/17 04:50 97.6 71 20 156/73 98 Room Air 03/09/17 00:00 97.5 76 18 151/84 96 Room Air 03/08/17 21:29 154/74 03/08/17 21:28 72 20 Room Air 21 03/08/17 20:00 97.4 70 20 154/74 97 Room Air Intake and Output 03/08/17 03/09/17 19:00 07:00 Intake Total 476 ml 120 ml Balance 476 ml 120 ml Intake Oral 476 ml 120 ml # Voids 2 3 # Bowel Movements 1 Objective General Appearance: WD/WN Lines, tubes and drains: peripheral HEENT: normocephalic, atraumatic Neck: non-tender, normal alignment Respiratory/Chest: chest wall non-tender, lungs clear Breasts: no masses Cardiovascular/Chest: normal peripheral pulses Abdomen: normal bowel sounds, non tender Genitourinary/Rectal: normal genital exam Extremities: normal range of motion Microbiology Date/Time Source Procedure Growth Status 03/07/17 10:30 Urine,Clean Catch Urine Culture - Final Escherichia Coli Complete Laboratory Tests 03/09/17 04:30: Urine Eosinophils None seen 03/09/17 05:15: White Blood Count 5.3, Red Blood Count 2.95L, Hemoglobin 10.0L, Hematocrit 32.1L , Mean Corpuscular Volume 109H, Mean Corpuscular Hemoglobin 34.0H, Mean Corpuscular Hemoglobin Concent 31.3L, Red Cell Distribution Width 19.7H, Platelet Count 68L, Mean Platelet Volume 6.0L, Neutrophils (%) (Auto) , Lymphocytes (%) (Auto) , Monocytes (%) (Auto) , Eosinophils (%) (Auto) , Basophils (%) (Auto) , Differential Total Cells Counted 100, Neutrophils % ( Manual) 69, Lymphocytes % (Manual) 18L, Monocytes % (Manual) 10, Eosinophils % ( Manual) 3, Basophils % (Manual) 0, Band Neutrophils 0, Platelet Estimate DecreasedL, Platelet Morphology Normal, Hypochromasia 1+, Anisocytosis 2+, Macrocytosis 1+, Sodium Level 142, Potassium Level 3.2L, Chloride Level 108H, Carbon Dioxide Level 24, Anion Gap 10, Blood Urea Nitrogen 40H, Creatinine 1.7H , Estimat Glomerular Filtration Rate , Glucose Level 153H, Calcium Level 8.7 XIANG AVALOS Mar 09, 2017 18:28
[2017-03-10] MEDS ORDERED: FOLIC ACID1 MG ORAL (11:04)
--- NOTE | 2017-03-10 11:19 | Discharge Summary ---
Discharge Summary Hospital Course Date of Admission Mar 05, 2017 at 21:47 Date of Discharge Mar 09, 2017 at 14:30 Admitting Diagnosis acs/hypogylcemia HPI Buzz Arteaga is a 76 year old female who was admitted on Mar 05, 2017 at 21:47 for Acute Coronary Syndrome /Hypoglycemia Hospital Course dc summary #[id number] Discharge Medications New Medications: Ciprofloxacin (Cipro) 500 Mg/5 Ml Adeline.mc.rec 500 MG PO BID for 5 Days, #10 EA Folic Acid* (Folic Acid*) 1 Mg Tablet 1 MG ORAL DAILY, #30 TAB Continued Medications: Alendronate Sodium (Alendronate Sodium) 70 Mg/75 Ml Solution 70 MG PO for 7 Days Allopurinol* (Allopurinol*) 100 Mg Tablet 100 MG ORAL DAILY, TAB Amlodipine Besylate* (Amlodipine Besylate*) 5 Mg Tablet 5 MG ORAL DAILY, TAB Aspirin* (Aspir 81*) 81 Mg Tablet.dr 81 MG ORAL DAILY, TAB Atorvastatin Calcium* (Lipitor*) 10 Mg Tablet 10 MG ORAL BEDTIME, TAB Calcium Carbonate/Vitamin D3 (Caltrate 600 + D Soft Chew Tab) 1 Each Tab.chew 1 EACH PO, TAB Celecoxib* (Celebrex*) 200 Mg Capsule 200 MG ORAL DAILY, CAP Cilostazol* (Cilostazol*) 100 Mg Tablet 100 MG PO TWICE A DAY, TAB Colchicine (Colcrys) 0.6 Mg Tablet 0.6 MG PO DAILY, TAB Cyclosporine (Restasis) 1 Each Droperette 1 DROP BOTH EYES EVERY 12 HOURS, #1 EA 0 Refills Epoetin Zack (Procrit) 10,000 Unit/1 Ml Vial 65576 UNIT SUBQ 3XW for 7 Days, VIAL Epoetin Zack (Procrit) 10,000 Unit/1 Ml Vial 63484 UNIT SUBQ 2XW, VIAL Ferrous Sulfate (Ferrous Sulfate) 325 Mg Tablet.dr 325 MG ORAL EVERY 6 HOURS, #30 TAB 0 Refills Gabapentin* (Gabapentin*) 300 Mg Capsule 300 MG ORAL TWICE A DAY, CAP 0 Refills Icosapent Ethyl (Vascepa) 1 Gm Capsule 1 GM PO EVERY 12 HOURS, CAP Insulin Aspart (Novolog) 100 Unit/1 Ml Cartridge 100 UNIT SQ BEFORE MEALS Insulin Glargine (Lantus) 100 Unit/1 Ml Insuln.pen 10 SUBQ BEDTIME, #1 EA 0 Refills Isosorbide Mononitrate (Isosorbide Mononitrate Er) 30 Mg Tab.er.24h 30 MG PO DAILY, TAB Linagliptin (Tradjenta) 5 Mg Tablet 5 MG PO DAILY, TAB Lipase/Protease/Amylase (Zenpep Dr 25,000 Units Capsule) 1 Each Capsule.dr 1 EACH PO THREE TIMES A DAY, CAP Nateglinide (Nateglinide) 120 Mg Tablet 120 MG PO THREE TIMES A DAY, TAB Nebivolol Hcl (Bystolic*) 10 Mg Tablet 10 MG ORAL DAILY, TAB Sevelamer Carbonate* (Renvela*) 0.8 Gm Powd.pack 800 MG ORAL THREE TIMES A DAY, PACK Valsartan (Diovan) 160 Mg Tablet 160 MG ORAL DAILY, TAB Discharge Condition Upon Discharge: stable Discharge Disposition Patient was discharged to Home (01) Discharge Diagnoses: Subhash (Sterlingliliana)Dee Dee NP Mar 10, 2017 11:19
--- NOTE | 2017-03-11 02:00 | Discharge Summary 2 SIG ---
DATE OF ADMISSION: 03/05/2017 DATE OF DISCHARGE: 03/09/2017 REASON FOR ADMISSION: 76-year-old female with a history of diabetes and hypertension presented to emergency room for evaluation. Apparently, the patient experienced chest pain/discomfort on the highway during driving. Family called paramedics. Blood sugar was in the 30s in the field. The patient also complained of dizziness, lightheadedness and blurred vision. The patient was given glucose. After glucose, the patient clinically improved. She denied chest pain. Upon arrival to the emergency room , no chest pain. No shortness of breath. No fever. No chills. Patient apparently fell recently and complained of right shoulder pain. Workup in the emergency room revealed potassium-7.4, BUN- 61, and creatinine- 2.6. Troponin was negative. ProBNP -4792. ECG with no acute ischemic changes. The patient was admitted with diagnosis of chest pain, rule out acute coronary syndrome, hyperkalemia with diminished renal excretion, renal failure and hypoglycemia. HOSPITAL COURSE: The patient admitted. Cardiology, Pulmonology and Nephrology consults were requested. Troponin x3 was negative. EKG revealed no acute ischemic changes. No further complaint of chest pain. The patient was ruled out for acute myocardial infarction. According to purse seining hand, chest pain was likely secondary to hypoglycemic event. The patient had typical symptoms of dizziness, lightheadedness and blurred vision due to the hypoglycemia. Echocardiogram revealed ejection fraction of 60% and right ventricular systolic pressure of 80 consistent with severe pulmonary hypertension. Blood pressure was managed with calcium-channel adi. Aspirin was continued along with the long-acting nitrate and beta- adi. Integrated Pest Management Technician suggested to change antihypertensive to ARMANI inhibitor , which will be beneficial for diabetes after renal failure resolved. Lipid panel was stable. Pulpwood Cutter followed the patient. Renal studies were done and reviewed by recruiter account manager. According to recruiter account manager, the patient likely had acute renal failure, probably on underlying chronic kidney disease due to possible diabetic nephropathy or due to the possible hypertensive kidney disease. Creatinine trending down , from 2.6 down to 1.7 and BUN from 61 down to 40. Hyperkalemia was treated, and prior to discharge K- 3.2. Potassium replaced prior to discharge. Urinalysis was positive for UTI. Urine culture revealed E. coli. While in the hospital, the patient was on the IV antibiotic, which changed to oral antibiotics upon discharge to complete the course. Hemoglobin A1c- 6.0. No further hypoglycemia. Starlix continued. Patient was explained not to take Starlix if not eating. The patient fell at home and complained of the pain in the right shoulder. The patient subsequently undergone x-ray of the right shoulder, which revealed no evidence of fracture or dislocation. Supplemental oxygen and pulmonary toilet provided as needed to keep pulse oximetry above 92%. Pulse oximetry actually was stable on room air. Chest x-ray was unremarkable. The patient required transfusion of one unit of packed red blood cells for hemoglobin -7.6 and hematocrit -25.6. Anemia workup revealed stable iron and low folate. Folic acid added to existing regimen. Venous duplex bilateral lower extremities was negative. DVT and GI prophylaxis provided. The patient was stable for discharge. FINAL DIAGNOSES: 1. Chest pain/ discomfort secondary to hypoglycemic episode, -resolved. 2. Acute tubular necrosis, possibly on underlying chronic renal insufficiency. 3. Possible diabetic nephropathy. 4. Possible hypertensive kidney disease. 5. Acute hyperkalemia with diminished renal excretion, resolved. 6. Hypoglycemia associated with diabetes. 7. Urinary tract infection with Escherichia coli. 8. Hypertension. 9. Anemia, requiring blood transfusion. 10. Folate deficiency anemia. 11. Severe pulmonary hypertension. 12. Right shoulder pain due to fall, likely soft tissue injury DISCHARGE MEDICATIONS: See medication reconciliation list. DISCHARGE INSTRUCTIONS: The patient discharged home. Follow up with primary medical doctor. Syed Lala M.D. Dee Dee PinedoMather HospitalJulianne N.PNica DR: LENIN JOB#: [id number] CC: ALYSSA
[2017-03-13] MEDS ORDERED: Vitamin D 50,000 units cap ORAL SCH (17:00)
== END 2017-03-09 14:30 | disposition home or self-care (01) | DRG 683 ==
LOC: EDBD 19:59 → EMR 20:30 → 2E 21:47 → EDBEDREQ 22:15 → 4W 03-08 15:27
PROC: 30233N1 Transfusion of Nonautologous Red Blood Cells into Peripheral Vein, Percutaneous Approach (ICD-10-PCS; principal; 2017-03-07)
DX: N17.0 Acute kidney failure with tubular necrosis (principal); N39.0 Urinary tract infection, site not specified; E11.649 Type 2 diabetes mellitus with hypoglycemia without coma; E11.22 Type 2 diabetes mellitus with diabetic chronic kidney disease; I27.29 Other secondary pulmonary hypertension; D52.9 Folate deficiency anemia, unspecified; E87.5 Hyperkalemia; B96.20 Unspecified Escherichia coli [E. coli] as the cause of diseases classified elsewhere; I12.9 Hypertensive chronic kidney disease with stage 1 through stage 4 chronic kidney disease, or unspecified chronic kidney disease; N18.9 Chronic kidney disease, unspecified; S49.91XA Unspecified injury of right shoulder and upper arm, initial encounter; W19.XXXA Unspecified fall, initial encounter; Z91.81 History of falling; Y92.009 Unspecified place in unspecified non-institutional (private) residence as the place of occurrence of the external cause; Z79.4 Long term (current) use of insulin; M25.511 Pain in right shoulder
CPT/HCPCS: 36415; 71045; 80048; 80053; 80061; 81001; 82270; 82378; 82550; 82553; 82607; 82728; 82746; 82947; 82962; 83036; 83540; 83550; 83615; 83735; 83880; 84100; 84300; 84443; 84484; 84550; 85007; 85025; 85044; 85060; 85610; 85651; 85730; 86140; 86850; 86900; 86901; 86920; 87086; 87181; 89050; 93005; 93306; 93970; 94664; 99285; J1815; J8499